=== PATIENT | female | born 1950 | race Caucasian/White ===

== ENCOUNTER 2018-07-21 02:15 | Outpatient (CLI) | payer MEDICARE, SELFPAY ==
--- NOTE | 2018-08-10 16:16 | W.CARDEVENT ---
Cardiac Event Recorder Cardiac Event Note: Monitor placed 13 days 22 hours, July 21-2017. Baseline of the sinus. Rare single PAC. 2 bursts SVT, longest 13.2 seconds, fastest 197 bpm. Rare single PVC. Rare couplets, rare triplet. No DVT. No bradycardia/block. No triggered events. No symptoms. Average heart rate sinus 79 bpm, range 45-152 bpm.
== END 2018-07-21 02:35 ==
PROVIDERS: PCP Family Medicine; Visit Provider Family Medicine
DX: R00.0 Tachycardia, unspecified (principal)
CPT/HCPCS: 93225

== ENCOUNTER 2018-08-10 12:00 | Outpatient (CLI) | payer MEDICARE, SELFPAY | END 2018-08-10 12:20 | PROVIDERS: PCP Family Medicine; Visit Provider Internal Medicine Interventional Cardiology | DX: I47.1 Supraventricular tachycardia (principal); I49.3 Ventricular premature depolarization | CPT/HCPCS: 93228 ==

== ENCOUNTER 2019-01-21 02:09 | Outpatient (CLI) | payer MEDICARE, SELFPAY ==
[2019-01-21 12:21] LABS: ALT 149 U/L (12-78); AST 111 U/L (15-37); Albumin 3.8 g/dL (3.4-5.0); Alkaline Phosphatase 114 U/L (46-116); Anion Gap 8.6 mmol/L (3-11); BUN 19 mg/dL (7-18); Bilirubin, Total 0.6 mg/dL (0.2-1.0); CO2 29.4 mmol/L (21.0-32.0); CREATININE 0.93 mg/dL (0.55-1.02); Calcium 9.8 mg/dL (8.5-10.1); Chloride 103 mmol/L (98-107); Cholesterol 169 mg/dL (50-200); Glucose 95 mg/dL (70-100); HDL Cholesterol 38 mg/dL (40-60); LDL CHOLESTEROL 108 mg/dL (<100); Magnesium 2.1 mg/dL (1.8-2.4); Sodium 141 mmol/L (136-145); TSH 1.92 uIU/mL (0.358-3.74); Total Protein 7.8 g/dL (6.4-8.2); Triglyceride 138 mg/dL (30-150)
== END 2019-01-21 02:29 ==
PROVIDERS: PCP Family Medicine; Visit Provider Family Medicine
DX: E03.9 Hypothyroidism, unspecified (principal); K21.9 Gastro-esophageal reflux disease without esophagitis; E78.5 Hyperlipidemia, unspecified
CPT/HCPCS: 36415; 80053; 80061; 83721; 83735; 84443

== ENCOUNTER 2019-03-02 02:37 | Outpatient (CLI) | payer MEDICARE, SELFPAY ==
[2019-03-02 12:09] LABS: ALT 141 U/L (12-78); AST 96 U/L (15-37); Albumin 3.6 g/dL (3.4-5.0); Alkaline Phosphatase 141 U/L (46-116); Bilirubin, Total 0.4 mg/dL (0.2-1.0); Total Protein 7.1 g/dL (6.4-8.2)
[2019-03-02 15:03] LABS: GGT 144 U/L (5-55)
== END 2019-03-02 02:57 ==
PROVIDERS: PCP Family Medicine; Visit Provider Family Medicine
DX: R74.0 Nonspecific elevation of levels of transaminase and lactic acid dehydrogenase [LDH] (principal)
CPT/HCPCS: 36415; 80076; 82977

== ENCOUNTER 2019-03-04 07:01 | Outpatient (CLI) | payer MEDICARE, SELFPAY ==
--- NOTE | 2019-03-04 09:10 | DI.US_ITS ---
SYMPTOM/DIAGNOSIS: ELEVATED LFT'S, R74.0 ABDOMEN ULTRASOUND: The aorta and vena cava are normal. The liver is somewhat echogenic suggesting fatty infiltration. The patient is status post cholecystectomy and the common duct caliber is 16 mm., presumably on a post surgical basis. The pancreas is normal. The spleen is normal. The left kidney measures 10.2 cm. in length and contains multiple cysts, the largest of which measures 4.8 by 4.1 by 5 cm. The right kidney is unremarkable. There is no evidence of free fluid. SUMMARY: Fatty liver is demonstrated. There are multiple left renal cysts. The study is otherwise unremarkable.
== END 2019-03-04 07:21 ==
PROVIDERS: PCP Family Medicine; Visit Provider Family Medicine
DX: K76.0 Fatty (change of) liver, not elsewhere classified (principal); N28.1 Cyst of kidney, acquired; R74.0 Nonspecific elevation of levels of transaminase and lactic acid dehydrogenase [LDH]
CPT/HCPCS: 76700

== ENCOUNTER 2019-03-22 01:17 | Outpatient (CLI) | payer MEDICARE, SELFPAY ==
[2019-03-22 13:21] LABS: Iron 105 ug/dL (50-175); Total Iron Binding Capacity 311 ug/dL (250-450); Transferrin Sat 34 % (15-50)
[2019-03-22 13:37] LABS: Ferritin 337 ng/mL (8-388)
[2019-03-23 10:50] LABS: Hepatitis B Surface Ag Negative (NEGAT)
[2019-03-23 11:06] LABS: Hepatitis C Ab w Rflx HCV PCR Negative (NEGAT)
[2019-03-23 11:31] LABS: HBs Antibody, Quant 4.8 mIU/mL; Hepatitis B Surface Ab Negative
[2019-03-24 11:07] LABS: Ceruloplasmin 32.3 mg/dL
[2019-03-24 11:56] LABS: IgA 190 mg/dL (85-499); Interpretation SEE COMMENTS; Tissue Transglutaminase IgA <1.2 U/mL (<4.0)
== END 2019-03-22 01:37 ==
PROVIDERS: PCP Family Medicine; Visit Provider Family Medicine
DX: R74.0 Nonspecific elevation of levels of transaminase and lactic acid dehydrogenase [LDH] (principal); Z11.59 Encounter for screening for other viral diseases
CPT/HCPCS: 36415; 82390; 82784; 83516; 86706; 86803; 87340; 82728; 83540; 83550; 86704

== ENCOUNTER 2019-09-22 09:40 | Outpatient (CLI) | payer MEDICARE, SELFPAY ==
[2019-09-22 10:07] LABS: HCT 39.3 % (36.0-46.0); HGB 12.9 g/dL (12.0-15.5); Mean Corp. HGB Concentration 32.8 g/dL (32.0-36.0); Mean Corpuscular Hemoglobin 28.5 pg (27.0-33.0); Mean Corpuscular Volume 86.8 fL (80-95); Mean Platelet Volume 9.2 fL (8.0-11.0); Platelet Count 334 x1000/uL (130-400); RBC 4.53 m/cumm (4.00-5.20); RBC Distribution Width 14.6 % (11.7-14.6); White Blood Cell Count 13.35 k/cumm (4.4-10.8)
--- NOTE | 2019-09-22 10:15 | DI.RAD_ITS ---
EXAM: XR CHEST 2V PA LATERAL INDICATION: Pneumonia, J18.9. COMPARISON: No exams were available for comparison TECHNIQUE: 2D digital imaging was performed. FINDINGS: The heart and pulmonary vasculature are within normal limits. There is an infiltrate seen in the lef t lung base. The right lung is clear. No pleural effusion or pneumothorax is identified. Degenerat marcin changes are seen in the spine. IMPRESSION: Left lower lobe infiltrate. This may represent atelectasis or pneumonia.
[2019-09-22 10:47] LABS: ALT 75 U/L (14-59); AST 56 U/L (15-37); Albumin 2.7 g/dL (3.4-5.0); Alkaline Phosphatase 136 U/L (46-116); Anion Gap 10.7 mmol/L (3-11); BUN 16 mg/dL (7-18); Bilirubin, Total 0.3 mg/dL (0.2-1.0); CO2 28.3 mmol/L (21.0-32.0); Calcium 8.6 mg/dL (8.5-10.1); Chloride 100 mmol/L (98-107); Glucose 156 mg/dL (70-100); Potassium 3.5 mmol/L (3.5-5.1); Sodium 139 mmol/L (136-145); Total Protein 7.2 g/dL (6.4-8.2)
[2019-09-22 11:44] LABS: Absolute Lymphocyte Count 1.34 k/cumm (1.2-3.4); Absolute Monocyte Count 0.53 k/cumm (0.11-0.7); Absolute Neutrophil Count 11.48 k/cumm (1.2-6.7); Atypical Lymphocytes % 1; Diff Comment Manual Differential; RBC Morphology Normal
== END 2019-09-22 10:00 ==
PROVIDERS: PCP Family Medicine; Visit Provider Family Medicine
DX: R91.8 Other nonspecific abnormal finding of lung field (principal); J18.9 Pneumonia, unspecified organism; J22 Unspecified acute lower respiratory infection; R94.5 Abnormal results of liver function studies
CPT/HCPCS: 36415; 80053; 71046; 85025

== ENCOUNTER 2019-10-27 01:20 | Outpatient (CLI) | payer MEDICARE, SELFPAY ==
[2019-10-27 09:45] LABS: Glucose 105 mg/dL (74-106)
== END 2019-10-27 01:40 ==
PROVIDERS: PCP Family Medicine; Visit Provider Family Medicine
DX: J18.9 Pneumonia, unspecified organism (principal); R73.09 Other abnormal glucose
CPT/HCPCS: 36415; 82947

== ENCOUNTER 2020-01-20 02:26 | Outpatient (CLI) | payer MEDICARE, SELFPAY ==
[2020-01-20 11:04] LABS: Calculated LDL 104 mg/dL (<100); Cholesterol 164 mg/dL (<200); HDL Cholesterol 32 mg/dL (40-60); TSH 2.91 uIU/mL (0.36-3.74); Triglyceride 144 mg/dL (<150)
== END 2020-01-20 02:46 ==
PROVIDERS: PCP Family Medicine; Visit Provider Family Medicine
DX: E78.5 Hyperlipidemia, unspecified (principal); E03.9 Hypothyroidism, unspecified
CPT/HCPCS: 36415; 80061; 84443

== ENCOUNTER → 2020-05-31 12:17 | Outpatient (BNVA) | payer MEDICARE, SELFPAY | PROVIDERS: PCP Family Medicine; Referring Provider Family Medicine; Visit Provider Nurse Practitioner Adult Health | DX: G56.03 Carpal tunnel syndrome, bilateral upper limbs (principal) | CPT/HCPCS: 95909; 99203 ==

== ENCOUNTER → 2020-07-13 10:09 | Outpatient (BNVA) | payer MEDICARE, SELFPAY | PROVIDERS: PCP Family Medicine; Referring Provider Nurse Practitioner Adult Health; Visit Provider Student in an Organized Health Care Education/Training Program | DX: G56.03 Carpal tunnel syndrome, bilateral upper limbs (principal) | CPT/HCPCS: 99203; 99214 ==

== ENCOUNTER 2020-10-27 11:21 | Emergency (ER) | payer MEDICARE, SELFPAY ==
[2020-10-27] VITALS (56 sets, daily range): BP systolic 127–173; BP diastolic 61–87; PULSE 88–113; RESP 12–33; TEMP 36.5; O2SAT 90–98
--- NOTE | 2020-10-27 11:15 | RT.EKG_ITS ---
APPROVED REPORT Exam: Resting ECG Patient Location: E HR:105 bpm ECG Measurements Heart Rate 105 AXIS [place] 164 P 37 QRSd 95 QRS -57 QT 361 T 49 QTc 477 Conclusion Sinus tachycardia. Consider left ventricular hypertrophy. Anterior Q waves
--- NOTE | 2020-10-27 11:30 | DI.RAD_ITS ---
EXAM: XR CHEST 2V PA LATERAL CLINICAL HISTORY: Chest pain TECHNIQUE: 2D digital imaging was performed. COMPARISON: CR XR CHEST 2V PA LATERAL from 09/22/2019 FINDINGS: MEDIASTINUM: Normal. HEART: Normal. PULMONARY VASCULATURE: Normal. LUNGS: Clear. PLEURAL SPACE: No pleural effusion or pneumothorax. BONE:Within normal limits for the patient's age. OTHER FINDINGS:Normal. IMPRESSION: No acute pulmonary findings. DATA REPOSITORY: RADIATION DOSE DELIVERED:
--- NOTE | 2020-10-27 11:38 | W.ED.GENAD ---
Discharge Plan Disposition Patient Disposition: HOME Condition: Stable Discharge Details Clinical Impression: Chest pain, Elevated liver enzymes, Elevated TSH Primary Care Provider: Terrie Murphy ED Provider: Reshma Morataya Home Meds and New Rx's Prescriptions: New aspirin 81 mg tablet,chewable 81 mg PO DAILY Qty: 30 RF: 0 Continued triamcinolone acetonide 0.1 % cream 1 applic TP DAILY PRN (Reason: dermatitis) Qty: 30 RF: 4 hydrocortisone 2.5 % lotion 1 applic TP BID PRN (Reason: itching) Qty: 118 RF: 1 calcium carbonate-vitamin D3 1 EACH tablet 1 ea PO DAILY RF: 0 atorvastatin 10 mg tablet 5 mg PO HS Qty: 90 RF: 4 omeprazole magnesium 20 mg capsule,delayed release(DR/EC) 20 mg PO DAILY Qty: 90 RF: 4 levothyroxine 88 mcg capsule 88 mcg PO DAILY Qty: 90 RF: 2 Discharge Instructions Instructions: Chest Pain (ED) Additional Instructions: Follow up with primary care provider in 3-5 days. Return to ED sooner if any worsening chest pain, nausea, dizziness or concerns. Increase oral fluids. Begin taking a chewable baby aspirin daily. Return to the ED for any worsening chest pain or concerns. A outpatient stress test was ordered today , they should call you with an appointment. Also of note your TSH level which has to do with your thyroid was elevated today at 4.68, also as discussed your liver enzymes were elevated. Please follow-up with your primary care regarding these tests. CT chest shows 3.5 mm right middle lobe lung nodule, probably benign. patients that are at high risk (history of smoking or of other known risk factors), consider optional CT Chest at 12 months. Small indeterminate left renal mass, probably involuting hemorrhagic cyst or some other benign entity. Routine outpatient ultrasound evaluation is recommended to confirm a presumed benign finding. Left adrenal mass, technically indeterminate but also probably benign. This should be further evaluated with dedicated renal CT protocol or opposed phased MRI imaging. please see your primary care provider next week to arrange further testing and evaluation. Referrals: Terrie Murphy MD [Primary Care Provider] - Discharge Data Discharge Date/Time-TO BE ENTERED AT DEPARTURE: 10/27/20 17:20 Medical Decision Making <Mel Tesfaye - Last Filed: 10/28/20 08:06> 70-year-old female presents to the ED with chief complaint of chest pain, she reports midsternal chest pain described as and small elephant sitting on my chest which began approximately 730 this morning. She notes mild nausea associated with this, some dizziness and diaphoresis. She states that belching somewhat relieves the pain. She has a past medical history of hypothyroidism, hyperlipidemia, GERD she is a former smoker. She did not take any aspirin prior to arrival. Upon initial exam she does state that pain is 3 or 4 out of 10. Denies any abdominal pain, diarrhea no swelling in her lower extremities. No recent travel. EKG was reviewed by Dr. Josephine THOMAS ER attending, please see his official report. Work-up ordered including CBC, CMP, magnesium, TSH, serial troponin, chest x-ray, 4 baby aspirin chewables, and nitroglycerin sublingual 0.4 mg x 3 as needed chest pain. EXAM: XR CHEST 2V PA LATERAL CLINICAL HISTORY: Chest pain TECHNIQUE: 2D digital imaging was performed. COMPARISON: CR XR CHEST 2V PA LATERAL from 09/22/2019 FINDINGS: MEDIASTINUM: Normal. HEART: Normal. PULMONARY VASCULATURE: Normal. LUNGS: Clear. PLEURAL SPACE: No pleural effusion or pneumothorax. BONE:Within normal limits for the patient's age. OTHER FINDINGS:Normal. IMPRESSION: No acute pulmonary findings. 1304: Patient reevaluation. Patient states that she did have some relief of her chest pressure with sublingual nitro x 1 administration, discussed her liver enzymes which are elevated with an AST of 173, ALT of 207, alk phos of 172 patient states that she has had elevated liver enzymes in the past which was attributed to fatty liver and her PCP is aware of it. She did take one Tylenol last night. She does not take Tylenol on a regular basis. She is not a drinker. She is aware of the plan of care to repeat the troponin around 2:30 PM. Shared decision making with patient regarding admission versus outpatient follow-up for a stress test and cardiology follow-up. Patient states that she would rather follow-up as an outpatient since this is Friday and she may not get the testing done until early next week. Pending repeat troponin result I do feel at this time is appropriate pending a negative work-up. 1524: While discharging patient RN states that patient would like to speak with me. Patient states that she is still feeling weak and diaphoretic. Given water and some crackers. Will order a CT chest abdomen pelvis to rule out any other pathology. She does have a history of a cholecystectomy. She states that she has been having some indigestion, nausea, belching and states she had a gallbladder attack last week. Care is to be handed off to oncoming provider Reshma Morataya NP pending CT chest abdomen pelvis resulted. Discharge papers were already written up given to the patient. Expected disposition of discharge pending normal CT. <Reshma Morataya NP - Last Filed: 10/27/20 18:34> ct results reviewed. patient able to take PO, heart rate improved to 100. abd exam unremarkable, she will be discharged with outpatient f/u with pcp. Medical Records Medical records reviewed: Yes I reviewed the patient's medical records. Medical records narrative: Patient Name: ANTONELLA CONCEPCION #: [id number]: ER Ordering Provider: : [facility] ER Primary Care Provider: Terrie Murphy M.D.Date of Exam: 10/27/20ex: F : 8Age: 70 Exam(s) PROCEDURE INFORMATION: Exam: CT Chest With Contrast; Diagnostic Exam date and time: 10/27/2020 3:55 PM Age: 70 years old Clinical indication: Other: Chest pain, nausea, HX of cholecystectomy; Prior surgery; Surgery date: 6+ months; Surgery type: Cholecystectomy. Complete hysterectomy TECHNIQUE: Imaging protocol: Diagnostic computed tomography of the chest with intravenous contrast. Contrast material: OMNIPAQUE 350; Contrast volume: 100 ml; Contrast route: INTRAVENOUS (IV); COMPARISON: CR XR CHEST 2V PA LATERAL 10/27/2020 12:06 PM FINDINGS: Limitations: None. Tracheobronchial tree: Normal. Lungs: Mild centrilobular pulmonary emphysema. 3.5 mm right middle lobe nodule best viewed image 47/7 and 274/6. The lungs are otherwise clear. Pleural space: Normal. Heart: Normal dimensions. No pericardial effusion. Coronary arteries: Mid LAD calcification. Aorta: Mild scattered aortosclerosis. Normal caliber aorta. Lymph nodes: No hilar or axillary adenopathy. Sub threshold mediastinal and hilar lymph nodes, none measuring greater than 0.7 cm short axis. Bones/joints: No acute fracture or suspicious osseous lesion. Soft tissues: Normal. IMPRESSION: 1. No acute disease in the chest. There is centrilobular pulmonary emphysema. 2. 3.5 mm right middle lobe lung nodule, probably benign. For patients at low risk (minimal or absent history of smoking and of other known risk factors), no routine follow-up is indicated. For patients at high risk (history of smoking or of other known risk factors), consider optional CT Chest at 12 months. (Reference: Beatrice) References: Beatrice Parker et al. Guidelines for Management of Incidental Pulmonary Nodules Detected on CT Images: From the Fleischner Society 2017. Radiology. 2017;284(1):228-243. 3. Aortosclerosis and mild left anterior descending coronary artery disease. PROCEDURE INFORMATION: Exam: CT Abdomen And Pelvis With Contrast Exam date and time: 10/27/2020 3:55 PM Age: 70 years old Clinical indication: Other: Chest pain, nausea, HX of cholecystectomy; Prior surgery; Surgery date: 6+ months; Surgery type: Cholecystectomy. Complete hysterectomy TECHNIQUE: Imaging protocol: Computed tomography of the abdomen and pelvis with intravenous contrast. Contrast material: OMNIPAQUE 350; Contrast volume: 100 ml; Contrast route: INTRAVENOUS (IV); COMPARISON: CR XR CHEST 2V PA LATERAL 10/27/2020 12:06 PM FINDINGS: Limitations: None. Liver: Finally lobulated/nodular liver margins and diffusely inhomogeneous liver parenchyma, also with fatty infiltration. Gallbladder and bile ducts: After cholecystectomy, there is a mild, expected degree of extrahepatic duct enlargement. Pancreas: Normal. Spleen: Normal. Adrenal glands: Left adrenal mass 2.3 x 1.8 cm. Attenuation values are indeterminate. No calcification or macroscopic fat. Kidneys and ureters: Simple/benign left renal cortical cyst 4.8 centimetres. Subcentimeter bilateral uniform low attenuating masses, also presumed benign. There is exophytic higher density posterior left renal cortical mass extending from a focal cortical defect. The mass measures 1.2 x 0.9 cm and there is slight infiltration of the adjacent perinephric fat. Stomach and bowel: Small hiatal hernia. The stomach is otherwise normal. Normal small bowel. Diffuse colonic diverticulosis. There is circumferential thickening of the bowel at the rectoanal junction. No adjacent fatty infiltration. Appendix: No evidence of appendicitis. Intraperitoneal space: No ascites, pneumoperitoneum or peritoneal lesion. Vasculature: Mild diffuse atherosclerosis. There is focal enlargement of the aorta, eccentric to posterior, and measuring up to 3.4 cm AP. Lymph nodes: None enlarged or otherwise suspicious. Urinary bladder: Normal. Reproductive: There has been prior hysterectomy. Ovaries are not identified. Bones/joints: No acute fracture or suspicious osseous lesion. Soft tissues: No mass or abdominal hernia. IMPRESSION: 1. No acute disease in the abdomen or pelvis. 2. There is stigmata of liver cirrhosis and diffuse fatty infiltration. No masses or findings suspicious for portal venous hypertension. 3. Left adrenal mass, technically indeterminate but also probably benign. This should be further evaluated with dedicated renal CT protocol or opposed phased MRI imaging. 4. Small indeterminate left renal mass, probably involuting hemorrhagic cyst or some other benign entity given the presence other renal findings that are presumed benign. Routine outpatient ultrasound evaluation is recommended to confirm a presumed benign finding. 5. Colonic diverticulosis and scattered atherosclerosis. Small hiatal hernia. Dictated and Authenticated by: Otoniel Salazar MD. Ordering:VIDAL Leal MD HPI <Mel Tesfaye - Last Filed: 10/28/20 08:06> General Mode of arrival: ambulatory. Date/Time Provider Initiated Documentation: 10/27/20 11:31. Limitations to Documentation: no limitations. Information obtained by: patient. HPI Narrative: 70-year-old female presents to the ED with chief complaint of chest pain, she reports midsternal chest pain described as and small elephant sitting on my chest which began approximately 730 this morning. She notes mild nausea associated with this, some dizziness and diaphoresis. She states that belching somewhat relieves the pain. She has a past medical history of hypothyroidism, hyperlipidemia, GERD she is a former smoker. She did not take any aspirin prior to arrival. Upon initial exam she does state that pain is 3 or 4 out of 10. Denies any abdominal pain, diarrhea no swelling in her lower extremities. No recent travel. Related Data Home Medications Medication Instructions Recorded Confirmed calcium carbonate-vitamin D3 1 ea PO DAILY 12/31/13 10/27/20 hydrocortisone 2.5 % lotion 1 applic TP BID PRN #118 ml 01/11/19 10/27/20 triamcinolone acetonide 0.1 % 1 applic TP DAILY PRN #30 gm 01/11/19 10/27/20 topical cream atorvastatin 10 mg tablet 5 mg PO HS #90 tab 10/20/19 10/27/20 omeprazole magnesium 20 mg 20 mg PO DAILY #90 cap 12/11/19 10/27/20 capsule,delayed release levothyroxine 88 mcg capsule 88 mcg PO DAILY #90 cap 08/04/20 10/27/20 aspirin 81 mg PO DAILY #30 tab 10/27/20 Previous Rx's Medication Instructions Recorded hydrocortisone 2.5 % lotion 1 applic TP BID PRN #118 ml 01/11/19 triamcinolone acetonide 0.1 % 1 applic TP DAILY PRN #30 gm 01/11/19 topical cream atorvastatin 10 mg tablet 5 mg PO HS #90 tab 10/20/19 omeprazole magnesium 20 mg 20 mg PO DAILY #90 cap 12/11/19 capsule,delayed release levothyroxine 88 mcg capsule 88 mcg PO DAILY #90 cap 08/04/20 aspirin 81 mg PO DAILY #30 tab 10/27/20 Allergies Allergy/AdvReac Type Severity Reaction Status Date / Time apple Allergy Severe SWELLING,RAW Verified 10/27/20 11:36 APPLES Sulfa (Sulfonamide Allergy Unknown Verified 10/27/20 11:36 Antibiotics) ciprofloxacin HCl AdvReac Intermediate DIARRHEA Verified 10/27/20 11:36 [From Cipro] erythromycin base AdvReac Intermediate NAUSEA Verified 10/27/20 11:36 General Stated Complaint: Chest Pain KAUR: 3 Review of Systems <Mel Tesfaye [facility] Filed: 10/28/20 08:06> Narrative: Constitutional: Negative for weight loss, alert and oriented, well groomed, normal body habitus, appears comfortable. HEENT: Denies trauma, headaches, blurry vision, nasal discharge, sore throat, trouble swallowing. Chest: Denies palpitations, irregular rhythm, positive chest pain, associated with dizziness, nausea and diaphoresis. Respiratory: Denies Shortness of breath, cough, hemoptysis. GI: Denies abdominal pain, vomiting, diarrhea, constipation. : Denies dysuria, hematuria, flank pain, rectal bleeding. Neuro: Denies blurry vision, weakness, syncope, headache or facial numbness. Hematologic: Denies easy bruising, intolerance to heat or cold, hair loss. PFSH <Melrobert Tesfaye - Last Filed: 10/28/20 08:06> Medical History (Updated 10/27/20 @ 14:56 by Mel Tesfaye) Bilateral carpal tunnel syndrome Colon polyps GERD (gastroesophageal reflux disease) Hyperlipidemia Hypothyroidism Osteoarthritis Surgical History Abdominal hysterectomy 1990; MARY/BSO Cholecystectomy (~05/2003) excision of Breast cyst-Right Incision & Drainage, Abscess or Hematoma left axilla Open Carpal Tunnel release 12/16-right; 01/13-left Family History Brother No problems noted. Mother , age 74 Breast cancer Father , age 80 No problems noted. Maternal Grandfather Stroke Paternal Grandfather No problems noted. Maternal Grandmother Heart disease Paternal Grandmother No problems noted. Son No problems noted. Social History Smoking/Tobacco Use Status: Former Tobacco Use Quit Date: 04/10/18 Tobacco: How many years used: 50 Second Hand Exposure: Yes Smoking risk assessment performed?: Yes Alcohol Intake: never Drug use: Never Caregiver/Support person: No Household members: spouse Housing: house Communication Needs: None Do you need help understanding health information?: Never Pets and animals: No Sexually active: Yes Do you think of yourself as: straight/heterosexual Current gender identity: female What is your relationship status?: How often do you talk on the phone with friends or family?: twice per week How often do you get together with friends or relatives?: once per week How often do you attend gnosticist or jew services?: 1-3 times per year Do you belong to any clubs or organized social groups?: yes Panel score (0-1 are the most socially isolated patients): 3 What type of physical activity do you participate in: decline to answer Duration: decline to answer Frequency: decline to answer Melinda/Congregational: Sikhism Seatbelt use: always Drive intox or ride w/intox flatbed truck driver: No Do you feel safe at home: Yes Do you feel safe in your relationship?: Yes Exam <Mel Tesfaye - Last Filed: 10/28/20 08:06> Narrative Exam Narrative: Constitutional: Alert and oriented x3. Appears stated age. Normal body habitus. Head: Normocephalic, no trauma. Eyes: Pupils PERRLA, Red reflex noted, EOM's intact. Eyelids symmetrical without lesions, discharge, or swelling. ENT: Bilateral TM's WNL, External ear normal to inspection, no mastoid TTP, swelling, or erythema, Nasal turbinates WNL, no nasal discharge. Normal dentition, Posterior pharynx WNL, no exudate. Chest: RRR, Normal S1, S2, distal pulses intact. Resp: Lungs clear to auscultation bilaterally, no wheezes, rales, or rhonchi. Musculoskeletal: Normal gait, 5/5 strength to all four extremities. Skin: No suspicious rashes or lesions. Capillary refill less than 2 sec. Neurologic: Cranial nerves II-XII intact. Alert and oriented x 3. DTR's intact. Hematologic/Lymphatic: No ecchymosis, no lymphadenopathy. Course <Mel Tesfaye - Last Filed: 10/28/20 08:06> Vital Signs Vital signs: Vital Signs Temperature 36.5 C 10/27/20 11:24 Pulse 113 H 10/27/20 11:24 Respiratory Rate 18 10/27/20 11:24 Blood Pressure 173/87 H 10/27/20 11:24 Pulse Oximetry 95 10/27/20 11:24 Temperature 36.5 C 10/27/20 11:24 Temperature Source Temporal Artery Scan 10/27/20 11:24 Pulse 113 H 10/27/20 11:24 Respiratory Rate 16 10/27/20 11:31 Respiratory Effort Non-Labored 10/27/20 11:31 Respiratory Depth Normal 10/27/20 11:31 Respiratory Pattern Normal 10/27/20 11:31 Blood Pressure 173/87 H 10/27/20 11:24 Blood Pressure Position Supine 10/27/20 11:24 Pulse Oximetry 95 10/27/20 11:24 Oxygen Delivery Method Room Air 10/27/20 11:24 Oxygen Flow Rate 0 10/27/20 11:24 Sign Out <Mel Tesfaye - Last Filed: 10/28/20 08:06> Sign Out Data: Sign Out Comment: Pending CT Chest Abd Pelvis Last updated by Mel Tesfaye at 10/27/20 16:13
[2020-10-27 11:43] LABS: Abs Immature Grans 0.04 10^3/uL (0.0-0.06); Absolute Basophil Count 0.05 10^3/uL (0.0-0.2); Absolute Eosinophil Count 0.08 10^3/uL (0.0-0.7); Absolute Lymphocyte Count 1.62 10^3/uL (1.2-3.4); Absolute Monocyte Count 0.54 10^3/uL (0.1-0.8); Absolute Neutrophil Count 4.83 10^3/uL (1.2-6.7); Basophils % 0.7; Eosinophils % 1.1; HCT 46.5 % (36.0-46.0); HGB 14.9 g/dL (11.2-15.7); Immature Grans % 0.6; Lymphocytes % 22.6; MCH 28.3 pg (27.0-33.0); MCV 88.4 fL (80-95); MPV 10.6 fL (8.0-11.0); Monocytes % 7.5; Neutrophils % 67.5; Nucleated RBC 0 %; Platelet Count 198 10^3/uL (130-400); RBC 5.26 10^6/uL (3.93-5.22); RDW 14.4 % (11.7-14.6); RDW-SD 46.5 fL; WBC 7.16 10^3/uL (4.4-10.8)
[2020-10-27] MEDS: Aspirin 81 MG CHEW 324 MG CH (12:01)
[2020-10-27 12:12] LABS: ALT 207 U/L (14-59); AST 173 U/L (15-37); Albumin 3.8 g/dL (3.4-5.0); Alkaline Phosphatase 172 U/L (46-116); BUN 16 mg/dL (7-18); Bilirubin, Total 0.6 mg/dL (0.2-1.0); CREATININE 0.87 mg/dL (0.55-1.02); Calcium 9.2 mg/dL (8.5-10.1); Chloride 103 mmol/L (98-107); Glucose 138 mg/dL (74-106); Sodium 139 mmol/L (136-145); TSH (W/Ref FT4) 4.68 uIU/mL (0.36-3.74); Total Protein 8.4 g/dL (6.4-8.2)
[2020-10-27 12:13] LABS: Troponin I < 0.05 ng/mL (<0.06)
[2020-10-27 12:29] LABS: FREE T4 0.96 ng/dL (0.76-1.46)
[2020-10-27] MEDS: nitroGLYcerin 0.4 MG TAB SL (12:50)
--- NOTE | 2020-10-27 14:30 | RT.EKG_ITS ---
APPROVED REPORT Exam: Resting ECG Patient Location: E HR:92 bpm ECG Measurements Heart Rate 92 AXIS [place] 170 P 20 QRSd 89 QRS -56 QT 377 T 39 QTc 465 Conclusion Sinus rhythm Anterior q, old
[2020-10-27 14:52] LABS: Troponin I < 0.05 ng/mL (<0.06)
--- NOTE | 2020-10-27 15:15 | DI.CT_ITS ---
EXAM: CT CHEST/ABD/PEL W CLINICAL HISTORY: Chest pain, Nausea, hx of cholecystectomy TECHNIQUE: Imaging Protocol: Axial computed tomography images with coronal and sagittal reformatted images were created and reviewed CONTRAST MATERIAL: Intravenous: Omnipaque 350 Contrast volume:100 mL Oral: No COMPARISON: No exams were available for comparison FINDINGS: CHEST: Tracheobronchial tree: Patent where visualized. Mediastinum and Rosie: No dominant adenopathy or fluid collection. Small hiatal hernia. Pulmonary parenchyma: No consolidation or dominant measurable mass. Or scarring in the lung bases. Centrilobular pulmonary emphysema. 3 mm noncalcified pulmonary nodule in the right middle lobe. Pleura: No effusion or pneumothorax. Heart: The heart is not dilated. Mild coronary artery calcification. No significant pericardial effu osbaldo. Aorta: Thoracic aorta non-dilated. Atherosclerosis. Lymph nodes: Within normal limits. Bones:Degenerative changes. Soft tissues: Unremarkable. ABDOMEN: Liver: There is diffuse fatty infiltration of the liver. The liver has a nodular border raising the question of hepatic cirrhosis. No measurable mass. Portal, Superior Mesenteric, and Splenic Veins: Unremarkable. Gallbladder and Biliary Tract: Status post cholecystectomy. The extrahepatic bile duct measures 1.6 cm. This is consistent with the abdominal ultrasound from 03/04/2019. This likely reflects a post ch olecystectomy state. Pancreas: Normal density, no abnormal calcifications or inflammatory process. Spleen: Normal. Adrenals: The right adrenal gland is unremarkable. There is a 2.2 cm solid isoechoic left adrenal no dule. Kidneys: Normal size, contour and axis. No radiodense stones or obstructive uropathy. There is a 4.7 cm left renal cyst. There is a 1.5 cm hyperdense exophytic left renal mass in the mid pole. Abdominal Aorta: Abdominal portion non-dilated. Moderate atherosclerosis. Bowel: No obstruction or bowel wall thickening. No evidence of appendicitis. Diverticulosis in the d escending and sigmoid colon but no evidence of acute diverticulitis. Peritoneal Cavity: No ascites, collection or mesenteric inflammatory response. Lymph Nodes: Within normal limits. Bones: Unremarkable. Soft Tissues: Small fat containing umbilical hernia. PELVIS: Bladder: Symmetric distention, no gross wall thickening. Reproductive Organs: Status post hysterectomy. Lymph Nodes: Within normal limits. Bones: Degenerative changes in the spine. IMPRESSION: 1. Findings suggestive of hepatic cirrhosis. Fatty infiltration of the liver. 2. Left adrenal mass. Further workup within the dedicated adrenal protocol CT or MRI is recommended. 3. Indeterminate left renal mass. Ultrasound may be considered for further evaluation. Alternativel y, MRI may be obtained. 4. No acute pulmonary process. 5. Centrilobular pulmonary emphysema. 6. 3 mm right middle lobe pulmonary nodule. For patients at high risk (example history of smoking or other known risk fractures), CT scan of the chest at 12 months should be considered. RADIATION DOSE DELIVERED: 1,406.05mGy.cm Total DLP DATA REPOSITORY: All CT scans at this facility are submitted to the National Radiology Data Registry (NRDR) Dose Index Registry (DIR) with the [employer] (ACR). RADIATION OPTIMIZATION: All CT scans at this facility use at least one of these dose optimization te chniques: automated exposure control; mA and/or kV adjustment per patient size (includes targeted exa ms where dose is matched to clinical indication); or iterative reconstruction.
[2020-10-27] MEDS: Omnipaque 350 MG/ML 100 ML BTL IJ (15:40)
[2020-10-27] MEDS: Normal Saline Flush 10 ML SYR IVP (15:48)
[2020-10-27] MEDS: Normal Saline - Diluent 50 ML VIAL IV (15:50)
[2020-10-27] MEDS: Normal Saline 1,000 ML 500 ML IV (16:00)
--- NOTE | 2020-10-27 16:47 | DI.VRAD_ITS ---
PROCEDURE INFORMATION: Exam: CT Chest With Contrast; Diagnostic Exam date and time: 10/27/2020 3:55 PM Age: 70 years old Clinical indication: Other: Chest pain, nausea, HX of cholecystectomy; Prior surgery; Surgery date: 6+ months; Surgery type: Cholecystectomy. Complete hysterectomy TECHNIQUE: Imaging protocol: Diagnostic computed tomography of the chest with intravenous contrast. Contrast material: OMNIPAQUE 350; Contrast volume: 100 ml; Contrast route: INTRAVENOUS (IV); COMPARISON: CR XR CHEST 2V PA LATERAL 10/27/2020 12:06 PM FINDINGS: Limitations: None. Tracheobronchial tree: Normal. Lungs: Mild centrilobular pulmonary emphysema. 3.5 mm right middle lobe nodule best viewed image 47/7 and 274/6. The lungs are otherwise clear. Pleural space: Normal. Heart: Normal dimensions. No pericardial effusion. Coronary arteries: Mid LAD calcification. Aorta: Mild scattered aortosclerosis. Normal caliber aorta. Lymph nodes: No hilar or axillary adenopathy. Sub threshold mediastinal and hilar lymph nodes, none measuring greater than 0.7 cm short axis. Bones/joints: No acute fracture or suspicious osseous lesion. Soft tissues: Normal. IMPRESSION: 1. No acute disease in the chest. There is centrilobular pulmonary emphysema. 2. 3.5 mm right middle lobe lung nodule, probably benign. For patients at low risk (minimal or absent history of smoking and of other known risk factors), no routine follow-up is indicated. For patients at high risk (history of smoking or of other known risk factors), consider optional CT Chest at 12 months. (Reference: Beatrice) References: Vanessahokelley H, et al. Guidelines for Management of Incidental Pulmonary Nodules Detected on CT Images: From the Fleischner Society 2017. Radiology. 2017;284(1):228-243. 3. Aortosclerosis and mild left anterior descending coronary artery disease. PROCEDURE INFORMATION: Exam: CT Abdomen And Pelvis With Contrast Exam date and time: 10/27/2020 3:55 PM Age: 70 years old Clinical indication: Other: Chest pain, nausea, HX of cholecystectomy; Prior surgery; Surgery date: 6+ months; Surgery type: Cholecystectomy. Complete hysterectomy TECHNIQUE: Imaging protocol: Computed tomography of the abdomen and pelvis with intravenous contrast. Contrast material: OMNIPAQUE 350; Contrast volume: 100 ml; Contrast route: INTRAVENOUS (IV); COMPARISON: CR XR CHEST 2V PA LATERAL 10/27/2020 12:06 PM FINDINGS: Limitations: None. Liver: Finally lobulated/nodular liver margins and diffusely inhomogeneous liver parenchyma, also with fatty infiltration. Gallbladder and bile ducts: After cholecystectomy, there is a mild, expected degree of extrahepatic duct enlargement. Pancreas: Normal. Spleen: Normal. Adrenal glands: Left adrenal mass 2.3 x 1.8 cm. Attenuation values are indeterminate. No calcification or macroscopic fat. Kidneys and ureters: Simple/benign left renal cortical cyst 4.8 centimetres. Subcentimeter bilateral uniform low attenuating masses, also presumed benign. There is exophytic higher density posterior left renal cortical mass extending from a focal cortical defect. The mass measures 1.2 x 0.9 cm and there is slight infiltration of the adjacent perinephric fat. Stomach and bowel: Small hiatal hernia. The stomach is otherwise normal. Normal small bowel. Diffuse colonic diverticulosis. There is circumferential thickening of the bowel at the rectoanal junction. No adjacent fatty infiltration. Appendix: No evidence of appendicitis. Intraperitoneal space: No ascites, pneumoperitoneum or peritoneal lesion. Vasculature: Mild diffuse atherosclerosis. There is focal enlargement of the aorta, eccentric to posterior, and measuring up to 3.4 cm AP. Lymph nodes: None enlarged or otherwise suspicious. Urinary bladder: Normal. Reproductive: There has been prior hysterectomy. Ovaries are not identified. Bones/joints: No acute fracture or suspicious osseous lesion. Soft tissues: No mass or abdominal hernia. IMPRESSION: 1. No acute disease in the abdomen or pelvis. 2. There is stigmata of liver cirrhosis and diffuse fatty infiltration. No masses or findings suspicious for portal venous hypertension. 3. Left adrenal mass, technically indeterminate but also probably benign. This should be further evaluated with dedicated renal CT protocol or opposed phased MRI imaging. 4. Small indeterminate left renal mass, probably involuting hemorrhagic cyst or some other benign entity given the presence other renal findings that are presumed benign. Routine outpatient ultrasound evaluation is recommended to confirm a presumed benign finding. 5. Colonic diverticulosis and scattered atherosclerosis. Small hiatal hernia. Dictated and Authenticated by: Otoniel Salazar MD. Ordering:VIDAL Leal MD
[2020-10-30 11:27] LABS: Hepatitis A Antibody IgM Negative (Negative); Hepatitis B Core Antibody Negative (Negative); Hepatitis B surface Ag Negative (Negative); Hepatitis C Ab w Rflx HCV PCR Negative (Negative)
== END 2020-10-27 17:20 | disposition home or self-care (01) ==
PROVIDERS: Registered Nurse Emergency; Emergency Provider Nurse Practitioner Acute Care; PCP Family Medicine
DX: R07.89 Other chest pain (principal); R74.01 Elevation of levels of liver transaminase levels; R94.6 Abnormal results of thyroid function studies
CPT/HCPCS: 36415; 74177; 80053; 86704; 86709; 86803; 87340; 93005; 96360; 99285; 71046; 71260; 83735; 84439; 84443; 84484; 85025; 93010; J3490

== ENCOUNTER 2020-11-13 03:31 | Outpatient (CLI) | payer MEDICARE, SELFPAY ==
[2020-11-14 19:38] LABS: COVID-19 RT-PCR UVMMC Result Negative (Negative)
== END 2020-11-13 03:51 ==
PROVIDERS: PCP Family Medicine; Visit Provider Internal Medicine Cardiovascular Disease
DX: Z11.59 Encounter for screening for other viral diseases (principal); Z01.811 Encounter for preprocedural respiratory examination
CPT/HCPCS: U0003

== ENCOUNTER 2020-11-16 00:32 | Outpatient (CLI) | payer MEDICARE, SELFPAY ==
--- NOTE | 2020-11-16 08:00 | ETT_ITS ---
APPROVED REPORT Exam: Exercise Treadmill Patient Location: Out-Patient Room/Bed: Stress Nurse: Chelsey Hummel RN Ordering Provider:MARILYN SORIANO, Contact Number: [phone] BMI: 35.42 Baseline Rhythm: Sinus Rhythm Rate Pressure Product: [id number] Indications: Patient reports 5/10 sternal, nonradiating chest pain/pressure during light housework wi th associated lightheadedness and nausea, lasting several hours. Medical History Medical History: HTN, HLD, GERD Cardiac Medications: Aspirin, Atorvastatin, Omeprazole. Allergies: Sulfonamide antibiotics, ciprofloxacin, erythromycin base Cardiac Risk Factors: HTN, Hyperlipidemia, Obesity, Smoking (former) Previous Cardiac Procedures: None. Pretest Chest Pain Characteristics: None. Exercise History: Sedentary Physical Disabilities: None. Lung Sounds: Clear to auscultation Heart Sounds: Regular Stress Test Details Test: Exercise stress testing was performed using a Jack protocol. Rest Stress HR Resting HR Supine: 94 bpm Max Heart Rate (APMHR): 148 bpm Resting HR Standin bpm Target HR (85% APMHR): 125 bpm Max HR Achieved: 169 bpm % of APMHR: 114 Recovery HR: 108 bpm HR response to stress: Accelerated HR response to stress Comment: Patient slow to recover HR. BP Resting BP Supine: 150/94 mmHg Resting BP Standin/68 mmHg Max BP: 182/70 mmHg Recovery BP: 152/64 mmHg BP response to stress: Normal blood pressure response to stress. ECG Resting ECG: Sinus Rhythm Ectopy: None. Stress ECG: Sinus Tachycardia ST Change: No significant ST segment changes noted. Arrhythmia: PACs, multifocal PVCs Comment: One PVC noted in stage 1, PVCs becoming more frequent as HR increased in stage 2. Recovery ECG: Sinus Tachycardia Recovery ST Change: No significant ST segment changes noted. Recovery Arrhythmia: None Comment: HR slow to recover. Clinical Reason for Termination: Muscle fatigue. Stress Symptoms: None. Exercise duration: 4 min48 sec Highest Stage Reached: Stage 2: 2.5 mph at 12% grade. Exercise capacity: 6.79 METs Angina Score: None Patino Treadmill Score: 4.6 Stress ECG Conclusion 1. The patient exercised for 5 minutes (7 METS). Exercise was stopped due to muscle fatigue. 2. There was no evidence of ischemia on the ECG portion of the exam. The patient did have multiple P VCs during peak exercise and immediate recovery. 3. The Patino Score (5) estimates an annual cardiovascular mortality of 1% and a five year survival of 94%. Using the Patino Score there is a low probability of any angiographic coronary disease. Patino Treadmill Score is 4.6 which is Moderate risk.
== END 2020-11-16 00:52 ==
PROVIDERS: PCP Family Medicine; Visit Provider Family Medicine
DX: R07.9 Chest pain, unspecified (principal); R11.0 Nausea; R42 Dizziness and giddiness; I10 Essential (primary) hypertension; E78.5 Hyperlipidemia, unspecified; E66.9 Obesity, unspecified; Z87.891 Personal history of nicotine dependence
CPT/HCPCS: 93016; 93018; 93017

== ENCOUNTER 2020-11-21 01:23 | Outpatient (CLI) | payer MEDICARE, SELFPAY ==
--- NOTE | 2020-11-21 06:49 | DI.MRI_ITS ---
EXAM: MR ABDOMEN WO/W CLINICAL HISTORY: 2.2 solid left adrenal mass/1.5cm renal mass on CT,R93.5 TECHNIQUE: Multiplanar multisequence MRA of the Abdomen was performed. CONTRAST MATERIAL: IV Contrast: 19 mL of Dotarem contrast administered. COMPARISON: US US ABDOMEN from 03/04/2019 US US ABDOMEN from 03/04/[address] CHEST/ABD/PEL W from 10/27/[address] CHEST/ABD/PEL W from 10/27/2020 FINDINGS: Liver: Unremarkable. Homogeneous. Pancreas: Unremarkable. Gallbladderand Bile Ducts: Dilated common duct, unchanged from previous exams. No evidence of stone. Adrenals: Left 1.7 centimeter circumscribed nodule. This shows signal dropout on opposed phase imagi ng, consistent with an adenoma. Right unremarkable. Kidneys: 4.8 centimeter cyst upper pole left kidney. Other tiny cysts bilaterally. The lesion in qu estion on the posterior aspect of the left kidney on CT is not well seen on the current MRI. It was visualized on previous ultrasound. Spleen: Unremarkable. Aorta: Unremarkable. Soft Tissues: Unremarkable. Bone: Degenerative disc changes and mild scoliosis in the lumbar region. Lymph Nodes: Unremarkable. IMPRESSION: 1. Small adrenal nodule is consistent with an adenoma. 2. Lesion seen on the posterior left kidney and is not well visualized on the current MRI. An ultra sound follow-up could be considered. DATA REPOSITORY:
[2020-11-21] MEDS: Gadoterate meglumine 20 ML VIAL 19 ML IVP (09:12)
== END 2020-11-21 01:43 ==
PROVIDERS: PCP Family Medicine; Visit Provider Family Medicine
DX: E27.8 Other specified disorders of adrenal gland (principal); N28.89 Other specified disorders of kidney and ureter
CPT/HCPCS: 74183

== ENCOUNTER 2021-01-17 14:23 | Outpatient (CLI) | payer MEDICARE, SELFPAY ==
[2021-01-17 15:56] LABS: ALT 153 U/L (14-59); AST 119 U/L (15-37); Albumin 3.3 g/dL (3.4-5.0); Alkaline Phosphatase 176 U/L (46-116); Anion Gap 8.6 mmol/L (3-11); BUN 17 mg/dL (7-18); Bilirubin, Total 0.4 mg/dL (0.2-1.0); CO2 28.4 mmol/L (21.0-32.0); CREATININE 0.8 mg/dL (0.55-1.02); Calcium 9.2 mg/dL (8.5-10.1); Chloride 100 mmol/L (98-107); Glucose 258 mg/dL (74-106); Potassium 4.1 mmol/L (3.5-5.1); Sodium 137 mmol/L (136-145); TSH 1.11 uIU/mL (0.36-3.74); Total Protein 7.3 g/dL (6.4-8.2)
[2021-01-22 15:16] LABS: Amylase 25 U/L (25-115); Lipase 126 U/L (73-393)
== END 2021-01-17 14:24 | disposition home or self-care (01) ==
LOC: LBO 14:23
PROVIDERS: PCP Family Medicine; Visit Provider Family Medicine
DX: E03.9 Hypothyroidism, unspecified (principal); R74.01 Elevation of levels of liver transaminase levels
CPT/HCPCS: 36415; 80053; 83690; 82150; 84443

== ENCOUNTER 2021-01-31 02:35 | Outpatient (CLI) | payer MEDICARE, SELFPAY ==
--- NOTE | 2021-01-31 08:15 | DI.US_ITS ---
EXAM: US RENAL CLINICAL HISTORY: left renal mass on CT 10/27/21,LESION,N28.9 TECHNIQUE: Ultrasound of both kidneys performed using standard protocol. COMPARISON: US US ABDOMEN from 03/04/[address] CHEST/ABD/PEL W from 10/27/2020 MR MR ABDOMEN WO/W from 11/21/2020 MR MR ABDOMEN WO/W from 11/21/2020 FINDINGS: RIGHT KIDNEY: Measures 11.1 cm in length. No cysts evident. Normal cortical thickness and corticomedullary differen tiation .No solid masses No intrarenal calculi nor hydronephrosis. LEFT KIDNEY: Measures 11.5 cm in length. There is a 5 cm diameter benign cyst in the medial upper pole again note d. The previously described smaller exophytic mass off the midpole of the left kidney seen on prior CT scan October 2020 is not seen on today's ultrasound examination images.. No intrarenal calculi n or hydonephrosis. URINARY BLADDER: Prevoid volume is 345 cc Postvoid volume is 6 cc No evidence of bladder mass nor diverticuli. Ureterovesical jets: Not identified IMPRESSION: 1. No significant ultrasound findings in the right kidney. 2. Benign 5 cm cyst in the left kidney again noted. 3. The previously described smaller exophytic lesion off the lateral aspect of the left kidney seen on the CT scan of October 2020 is not seen on today's ultrasound images. It was also less evident o n recent MRI scan 11/21/2020. It is therefore most probably a benign finding. 4. Please note that the recent CT scan and MRI scan revealed a left adrenal nodule measuring 2.2 cm. On MRI that nodule exhibit signal dropout on out of phase-opposed phase imaging consistent with a p robable benign adenoma. Given the above I recommend repeat imaging in 1 year with MRI examination, earlier if clinically telma cated. DATA REPOSITORY:
== END 2021-01-31 02:55 ==
PROVIDERS: PCP Family Medicine; Visit Provider Family Medicine
DX: N28.89 Other specified disorders of kidney and ureter (principal); N28.1 Cyst of kidney, acquired; D35.02 Benign neoplasm of left adrenal gland
CPT/HCPCS: 76770

== ENCOUNTER 2021-03-09 02:43 | Outpatient (CLI) | payer MEDICARE, SELFPAY ==
[2021-03-09 08:49] LABS: Hemoglobin A1C 6.9 % (<5.7)
[2021-03-09 09:01] LABS: Calculated LDL 97 mg/dL (<100); Cholesterol 156 mg/dL (<200); Glucose 123 mg/dL (74-106); HDL Cholesterol 35 mg/dL (40-60); Triglyceride 124 mg/dL (<150)
== END 2021-03-09 02:44 | disposition home or self-care (01) ==
LOC: LBO 02:43
PROVIDERS: PCP Family Medicine; Visit Provider Family Medicine
DX: E78.5 Hyperlipidemia, unspecified (principal); R73.9 Hyperglycemia, unspecified
CPT/HCPCS: 36415; 80061; 82947; 83036

== ENCOUNTER 2021-06-14 03:43 | Outpatient (CLI) | payer MEDICARE, SELFPAY ==
[2021-06-14 12:01] LABS: Anion Gap 7.6 mmol/L (3-11); BUN 19 mg/dL (7-18); CO2 27.4 mmol/L (21.0-32.0); CREATININE 0.8 mg/dL (0.55-1.02); Calcium 9.4 mg/dL (8.5-10.1); Chloride 105 mmol/L (98-107); Glucose 107 mg/dL (74-106); Potassium 4.5 mmol/L (3.5-5.1); Sodium 140 mmol/L (136-145)
[2021-06-14 12:18] LABS: Hemoglobin A1C 6.7 % (<5.7)
== END 2021-06-14 03:44 | disposition home or self-care (01) ==
LOC: LOS 03:43
PROVIDERS: PCP Family Medicine; Visit Provider Family Medicine
DX: E11.65 Type 2 diabetes mellitus with hyperglycemia (principal)
CPT/HCPCS: 36415; 80048; 83036

== ENCOUNTER 2021-06-29 11:37 | Outpatient (CLI) | payer MEDICARE, SELFPAY ==
--- NOTE | 2021-06-29 11:30 | DI.RAD_ITS ---
Exam(s) XR KNEE RT 4V AP,LAT,MERLINE,PAT EXAM: XR KNEE RT 4V AP,LAT,MERLINE,PAT CLINICAL HISTORY: rt knee pain. TECHNIQUE: 2D digital imaging was performed. COMPARISON: No previous for comparison. FINDINGS: BONES: No acute fracture is present. No bony destructive lesion is seen. JOINTS: The knee is normally aligned. No joint effusion is seen. There is a small spur at the posteri or aspect of the patella. There is a small enthesophyte at the superior patella. SOFT TISSUE: Normal. IMPRESSION: Mild degenerative changes of the right knee. DATA REPOSITORY: RADIATION DOSE DELIVERED:
== END 2021-06-29 11:38 | disposition home or self-care (01) ==
PROVIDERS: PCP Family Medicine; Referring Provider Family Medicine; Visit Provider Student in an Organized Health Care Education/Training Program
DX: M25.561 Pain in right knee; S83.104A Unspecified dislocation of right knee, initial encounter; W10.9XXA Fall (on) (from) unspecified stairs and steps, initial encounter
CPT/HCPCS: 99214; 73564

== ENCOUNTER 2021-07-25 01:49 | Outpatient (CLI) | payer MEDICARE, SELFPAY ==
--- NOTE | 2021-07-25 07:00 | DI.MRI_ITS ---
Exam(s) MR LOWER JOINT RT WO EXAM: MR LOWER JOINT RT WO CLINICAL HISTORY: right knee pain r/o meniscus tear, M25.561. TECHNIQUE: Multiplanar multisequence MRI was performed. COMPARISON: CR XR KNEE RT 4V AP,LAT,MERLINE,PAT from 06/29/2021 CR XR KNEE RT 4V AP,LAT,MERLINE,PAT from 06/29/2021 FINDINGS: The examination is limited due to patient motion artifact. BONES: There is no fracture or contusion pattern. JOINTS: Articular cartilage is unremarkable. Small amount of fluid in the joint space. Mild degenera tive signal changes are seen in the medial femoral tibial joint space. TENDONS: Extensor mechanism: Unremarkable. Medial retinaculum: Unremarkable. Lateral retinaculum: Unremarkable. Popliteus: Unremarkable. MUSCLES: Unremarkable. MENISCI: There is abnormal signal and size of the body of the medial meniscus is consistent with a te ar. The lateral meniscus is unremarkable. SOFT TISSUES: There is mild edema in the soft tissues around the knee. No focal fluid collection is seen. No soft tissue mass is appreciated. LIGAMENTS: Anterior Cruciate: Unremarkable. Posterior Cruciate: Unremarkable. Medial Collateral:MCL sprain. Lateral Collateral: Unremarkable. OTHER: IMPRESSION: 1. Tear of the body of the medial meniscus. 2. MCL sprain. 3. Mild degenerative changes in the medial femoral tibial joint. DATA REPOSITORY:
== END 2021-07-25 02:09 ==
PROVIDERS: PCP Family Medicine; Visit Provider Student in an Organized Health Care Education/Training Program
DX: M25.561 Pain in right knee (principal); S83.241A Other tear of medial meniscus, current injury, right knee, initial encounter; S83.411A Sprain of medial collateral ligament of right knee, initial encounter; M17.11 Unilateral primary osteoarthritis, right knee
CPT/HCPCS: 73721

== ENCOUNTER → 2021-07-27 09:03 | Outpatient (BNVA) | payer MEDICARE, SELFPAY | PROVIDERS: PCP Family Medicine; Referring Provider Family Medicine; Visit Provider Student in an Organized Health Care Education/Training Program | DX: S83.104D Unspecified dislocation of right knee, subsequent encounter (principal); S83.241D Other tear of medial meniscus, current injury, right knee, subsequent encounter; X58.XXXD Exposure to other specified factors, subsequent encounter | CPT/HCPCS: 99213 ==

== ENCOUNTER → 2021-08-15 12:36 | Outpatient (BNVA) | payer MEDICARE, SELFPAY | PROVIDERS: PCP Family Medicine; Referring Provider Family Medicine | DX: Z01.818 Encounter for other preprocedural examination (principal); S83.241D Other tear of medial meniscus, current injury, right knee, subsequent encounter; S83.104D Unspecified dislocation of right knee, subsequent encounter; X58.XXXD Exposure to other specified factors, subsequent encounter ==

== ENCOUNTER 2021-09-03 02:19 | Outpatient (CLI) | payer MEDICARE, SELFPAY ==
[2021-09-03 12:27] LABS: Source Nasal/Nares
[2021-09-03 21:45] LABS: COVID-19 PCR Negative (Negative)
== END 2021-09-03 02:20 | disposition home or self-care (01) ==
LOC: LBO 02:20
PROVIDERS: PCP Family Medicine; Visit Provider Student in an Organized Health Care Education/Training Program
DX: Z20.822 Contact with and (suspected) exposure to COVID-19 (principal); Z01.818 Encounter for other preprocedural examination
CPT/HCPCS: 87635

== ENCOUNTER 2021-09-04 12:12 | Day surgery (SDC) | payer MEDICARE, SELFPAY ==
[2021-09-04] VITALS (10 sets, daily range): BP systolic 117–147; BP diastolic 45–87; PULSE 75–89; RESP 14–21; TEMP 36–37; TEMPC 36.3; O2SAT 95–98; BMI 33.7
--- NOTE | 2021-09-04 13:24 | ANES.PREOP_ITS ---
General Info Date of Service Date Performed: 09/04/21 Height: 5 ft 3 in Weight: 86.3 kg Body Mass Index (BMI): 33.7 Surgical Procedure: Operation Date: 09/04/21 12:55 Proposed Procedures Side Surgeon p knee arthroscopic partial medial menisectomy Right Addy Rueda MD Meds Allergies and Home Medications Allergies Allergy/AdvReac Type Severity Reaction Status Date / Time apple Allergy Severe SWELLING,RAW Verified 09/04/21 12:48 APPLES Sulfa (Sulfonamide Allergy Unknown Verified 09/04/21 12:48 Antibiotics) ciprofloxacin HCl AdvReac Intermediate DIARRHEA Verified 09/04/21 12:48 [From Cipro] erythromycin base AdvReac Intermediate NAUSEA Verified 09/04/21 12:48 Home Medication Medication Instructions Recorded calcium carbonate-vitamin D3 1 ea PO DAILY 12/31/13 hydrocortisone 2.5 % lotion 1 applic TP BID PRN #118 ml 01/11/19 triamcinolone acetonide 0.1 % 1 applic TP DAILY PRN #30 gm 01/11/19 topical cream nitroglycerin 0.4 mg sublingual 0.4 mg SUBLINGUAL Q5-10M PRN #20 10/30/20 tablet tab atorvastatin 10 mg tablet 5 mg PO HS #90 tab 11/20/20 omeprazole magnesium 20 mg 20 mg PO DAILY #90 cap 11/28/20 capsule,delayed release levothyroxine 100 mcg tablet 100 mcg PO DAILY #90 tab 08/20/21 metformin 500 mg tablet,extended 500 mg PO DAILY #90 tab 08/20/21 release 24 hr amlodipine 5 mg PO HS 09/03/21 Current Visit Medications: Current Medications Generic Name Dose Route Start Last Admin Trade Name Freq PRN Reason Stop Dose Admin Ringer's Solution 1,000 mls @ 80 mls/hr 09/04/21 06:00 IV 10/03/21 23:59 INFUSION GEOFF Cefazolin Sodium/Dextrose 2 gm in 50 mls @ 100 mls/hr 09/04/21 06:00 Ancef Duplex IVPB 10/03/21 23:59 PREOP GEOFF IV Miscellaneous Supplies 1 each 09/04/21 06:00 Iv Access IV 10/03/21 23:59 DIRECTED GEOFF Sodium Chloride 0 ml 09/04/21 06:00 Normal Saline Flush 10 Ml Syr IV 10/03/21 23:59 PRN PRN Sodium Chloride 0 ml 09/04/21 06:00 Normal Saline 10 Ml Vial IJ 10/03/21 23:59 DIRECTED PRN Sterile Water 0 ml 09/04/21 06:00 Water,Injection,Sterile 10 Ml Vial IJ 10/03/21 23:59 DIRECTED PRN PFSH Active Problems Active Problems: Problem Status Onset Code Gastroesophageal reflux disease 12/31/13 K21.9 Generalized osteoarthritis 12/31/13 M15.9 Hyperlipidemia E78.5 Hypothyroidism 01/04/14 E03.9 Tobacco use disorder F17.200 Obesity E66.9 Pulmonary nodule R91.1 High blood sugar R73.9 Acute traumatic internal derangement of right knee S83.104A Acute medial meniscus tear of right knee S83.241A Left breast mass N63.20 Essential hypertension I10 Cirrhosis of liver without ascites K74.60 Polyp of colon 10/09/05 K63.5 Fatty liver disease, nonalcoholic K76.0 Bilateral carpal tunnel syndrome G56.03 Medical History Medical History Adrenal mass 1 cm to 4 cm in diameter benign/adenoma/ MRI 2020 Bilateral carpal tunnel syndrome Cirrhosis of liver without ascites [facility] fibroscan March 2021/asymptomatic/NON-ERIC Essential hypertension Fatty liver disease, nonalcoholic BRIAN/cirrhosis dx fibroscan [facility] March 2021 GERD (gastroesophageal reflux disease) Hx of needle biopsy (L) BREAST Hyperlipidemia Hypothyroidism Left breast mass Osteoarthritis Polyp of colon (10/09/05) [id number] adenoma 2014 CT colonography at [facility] [place], no polyp ([facility] unable to complete colonoscopy) Sebaceous cyst of left axilla infected and removed 2015 Surgical History Surgical History Abdominal hysterectomy 1990; MARY/BSO Cholecystectomy (~05/2003) excision of Breast cyst-Right Incision & Drainage, Abscess or Hematoma left axilla Open Carpal Tunnel release 12/16-right; 01/13-left Tobacco Smoking/Tobacco Use Status: Former Tobacco Use Tobacco: How many years used: 50 Passive smoking exposure: Yes Second hand exposure: Yes Alcohol Alcohol Intake: never Substance Use Substance use: Never Substance use type: does not use Vital Signs and Lab Results Vital Signs Most Recent Vital Signs in EMR: Most Recent Vital Signs Temp Pulse Resp BP Pulse Ox 37 C 89 16 144/87 H 97 09/04/21 12:57 09/04/21 12:57 09/04/21 12:57 09/04/21 12:57 09/04/21 12:57 Lab Results Blood Type / Crossmatch: No Data to Display Complete Blood Count: No Data to Display Complete Metabolic Panel: No Data to Display Liver Function Panel: No Data to Display Coagulation Panel: No Data to Display Cardiac Panel: No Data to Display Arterial Blood Gas: No Data to Display Venous Blood Gas: No Data to Display Pancreas Panel: No Data to Display Thyroid Panel: No Data to Display Infectious Disease: Coronavirus (COVID-19)(PCR) Negative (Negative) 09/03/21 10:41 09/03/21 Coronavirus 2019 Source Nasal/Nares 09/03/21 10:41 09/03/21 Blood Cultures: No Data to Display Toxicology Panel: No Data to Display Imaging and Studies Imaging and Studies EKG Summary: DATE/TIME OF SERVICE: 10/27/20 1434 HR:92 bpm ECG Measurements Heart Rate 92 AXIS OK 170 P 20 QRSd 89 QRS -56 QT 377 T39 QTc 465 Conclusion Sinus rhythm Stress Test Summary: DATE/TIME OF SERVICE: 11/16/20 Exam: Exercise Treadmill Indications: Patient reports 5/10 sternal, nonradiating chest pain/pressure during light housework with associated lightheadedness and nausea, lasting several hours. Stress ECG Conclusion 1. The patient exercised for 5 minutes (7 METS). Exercise was stopped due to muscle fatigue. 2. There was no evidence of ischemia on the ECG portion of the exam. The patient did have multiple PVCs during peak exercise and immediate recovery. 3. The Patino Score (5) estimates an annual cardiovascular mortality of 1% and a five year survival of 94%. Using the Patino Score there is a low probability of any angiographic coronary disease. Patino Treadmill Score is 4.6 which is Moderate risk. Anesthesia Assessment and Plan Anesthesia History Personal History: PONV and Delayed Emergence Family History: No Family History of Anesthesia Complications Exercise Tolerance Exercise Tolerance: Metabolic Equivalents>4 Pertinent Negatives Pertinent Negatives: No Symptoms of GERD (Well controlled with medication), No Major Cardiovascular Symptoms or Complaints and No Major Pulmonary Symptoms or Complaints Cardiac & Pulmonary Exam Cardiac Exam: Normal S1/S2 Heart Sounds Pulmonary Exam: Clear Bilateral Breath Sounds Airway Exam Known Difficult Airway: No Mallampati Class: 1 Mouth Opening: Normal (> 3cm) Thyromental Distance: Greater than 3 cm Neck Range of Motion: Full ROM Neck Circumference: Normal Teeth Condition: Normal Dentition ASA Classification ASA Score: ASA 2 Emergency Case?: No NPO Status NPO Status: NPO Clears >2 hours, Solids >8 hours Anesthesia Plan Resuscitation Status: Full Code Anesthesia Technique: General Anesthesia Airway Planned: LMA Monitors Used: Standard Monitors
[2021-09-04] MEDS: Lactated Ringers 1,000 ML 80 ML IV (13:28)
[2021-09-04] MEDS: ceFAZolin 2 GM/50 ML BAG IVPB (13:51)
--- NOTE | 2021-09-04 13:59 | W.PM.DSUDISC ---
Discharge Plan Disposition Patient Disposition: HOME Condition: Good Discharge Details Reason For Visit: R knee arthroscopy Attending Provider: Addy Rueda Primary Care Provider: Trish Healy Home Meds and New Rx's Prescriptions: New acetaminophen 500 mg capsule 1,000 mg PO Q8H PRN PRNQty: 90 RF: 0 hydrocodone-acetaminophen 5-325 mg tablet 1 tab PO Q6H PRN (Reason: pain) Qty: 6 RF: 0 ibuprofen 600 mg tablet 600 mg PO TID PRN (Reason: pain) Qty: 90 RF: 0 Continued triamcinolone acetonide 0.1 % cream 1 applic TP DAILY PRN (Reason: dermatitis) Qty: 30 RF: 4 hydrocortisone 2.5 % lotion 1 applic TP BID PRN (Reason: itching) Qty: 118 RF: 1 nitroglycerin [Nitrostat] 0.4 mg tablet, sublingual 0.4 mg sublingual Q5-10M PRN (Reason: chest pain) Qty: 20 RF: 0 levothyroxine 100 mcg tablet 100 mcg PO DAILY Qty: 90 RF: 4 metformin 500 mg tablet extended release 24 hr 500 mg PO DAILY Qty: 90 RF: 4 calcium carbonate-vitamin D3 1 EACH tablet 1 ea PO DAILY RF: 0 atorvastatin 10 mg tablet 5 mg PO HS Qty: 90 RF: 2 omeprazole magnesium 20 mg capsule,delayed release(DR/EC) 20 mg PO DAILY Qty: 90 RF: 4 amlodipine 5 mg tablet 5 mg PO HS RF: 0 Discharge Instructions Stand Alone Forms: Mohit Knee Arthroscopy Equipment/Supplies: Partial Weight Bearing Crutches Activity:: Activity as Tolerated Remove Dressings/Wound Care:: 72 hours Shower/Bathe:: 72 hours Diet:: As Tolerated Discharge Orders Discharge Orders: Discharge Order (Routine); Ordered 09/04/21 Ordered By: Jamarcus Puga DS: Diagnosis Discharge Diagnosis (1) Acute medial meniscus tear of right knee: Status: Acute
[2021-09-04] MEDS: Bupivacaine 0.5% Pres-Free 30 ML VIAL (14:09)
--- NOTE | 2021-09-04 14:50 | W.ANESPOSTOP ---
Postoperative Evaluation Date, Time and Location Date Performed: 09/04/21 Time Performed: 14:50 Patient Location: PACU Vital Signs Most Recent Imported Vital Signs: Most Recent Vital Signs Temp Pulse Resp BP Pulse Ox 36.3 C L 87 21 130/45 L 97 09/04/21 14:26 09/04/21 14:26 09/04/21 14:09/04/21 14:09/04/21 14:26 Most Recent Manually Entered Vital Signs: Adult Blood Pressure: 124/61 Heart Rate: 78 Respirations: 14 Oxygen Saturation (%): 98 Temperature (C): 36.3 C Pain Score (0-10 Scale): 2 Pain Score Most Recent Pain Score: Most Recent Pain Score Pain Level 0 09/04/21 14:26 Assessment Mental Status: Awake (Alert & Oriented to Patient Baseline) Airway and Respiratory Function: Patent airway with normal (patient baseline) respiratory exam Cardiovascular Function: Hemodynamically Stable Hydration Status: Adequately Hydrated Nausea & Vomiting: No Nausea or Vomiting Pain: Pt. Denies Any Pain Peripheral Nerve Block: Patient did not receive a nerve block
[2021-09-04] MEDS: HYDROcodone 5/Acetaminophen 325 TAB PO (15:40)
--- NOTE | 2021-09-04 21:02 | ROE_ITS ---
Date of service: 09/04/21 Time of Service: 14:03 Operative Note Operative Note DATE OF PROCEDURE: 09/04/21 PRE-OP DIAGNOSIS: Right Knee Medial Meniscus Tear POST-OP DIAGNOSIS: same PROCEDURE: Arthroscopic partial medial menisectomy - right knee SURGEON: Addy Rueda ANESTHESIA TYPE: General LMA/ETT Refer to Anesthesia Record ESTIMATED BLOOD LOSS: 0 PATHOLOGY: none sent TOURNIQUET TIME: 0 COMPLICATIONS: None Patient was transported to: PACU Patient's condition: stable Indications: I have seen Sheron in clinic for symptoms of a meniscus tear. This was confirmed based on MRI and exam findings. Nonoperative measures were exhausted but disability and pain persisted. I discussed knee arthroscopy with meniscal intervention with the patient. I reviewed the risks of the procedure to include, but not limited to, bleeding, infection, pain, stiffness, damage to nerves or vessels, recurrence, blood clot. Despite these risks, the patient elected to proceed. 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 The consent was reviewed with the patient and signed. The history and physical was updated. All questions were answered. She was taken back to the operating room. The patient was placed into the supine position on the operating room table. A nonsterile tourniquet was placed high onto the leg but not used. All bony prominences were well padded. Prophylactic antibiotics in the form of Cefazolin were administered. The right leg was then prepped with Chloraprep and draped in a standard fashion with stockinette and extremity drape. A timeout to confirm correct identity, side an d site, procedure, allergies, anesthesia, and medical concerns was performed. The leg was placed into a pneumatic leg kelly, SPIDER2. A standard lateral portal was made at the lateral border of the patella tendon in line with the inferior pole of the patella, soft spot. The skin and deep tissue was incised sharply and the blunt trochar was inserted atraumatically. A diagnostic arthroscopy was performed and the findings are listed above. The suprapatellar pouch had no significant inflammatory change. The patellofemoral articulation showed no articular damage as well as good tracking. The lateral gutter had no loose bodies and the medial gutter had no loose bodies. The knee was brought into some valgus stress in extension to open the medial compartment. A medial portal was made, localized by a spinal needle. The portal was created with an #11 blade through skin and capsule under direct visualization avoiding any meniscal injury. A probe was then inserted into the medial compartment. The medial compartment was fully inspected. The chondral surface of the tibia showed no significant chondromalacia and the surface of the femur showed some focal Grade II chondromalacia. The medial meniscus had a complex tear near the posteirior corner. This had a parrot beak type tear associated with some complex tearing and primary horizontal component with undersurface fraying to th e level of the root. The root was intact. After evaluation, the meniscus was debrided down to a stable base using a series of biters and arthroscopic shola. It was probed afterwards to confirm that the tear had been removed and the meniscus was stable. The notch was then inspected which showed an intact ACL and an intact PCL. The leg was then brought into a figure of 4 position. The lateral compartment was fully inspected with the arthroscope and a probe. The chondral surface of the lateral femur showed no significant chondromalacia. The chondral surface of the lateral tibia showed no significant chondromalacia. The lateral meniscus had no meniscal tear. The arthroscope was brought back into the suprapatellar pouch and the leg was in full extension. The knee was thoroughly irrigated with the arthroscopic fluid on high flow and pressure. Inflow was stopped and excess fluid was removed. The wounds were closed with 4-0 Nylon. They were dressed with Xeroform, 4x4 gauze, ABD pad, Kerlix and an BILLY wrap. A cryo-cuff was applied. The patient tolerated the procedure well and was returned to the Same Day Surgery area in a stable condition suffering no known complication.
== END 2021-09-04 17:05 | disposition home or self-care (01) ==
PROVIDERS: PCP Family Medicine; Visit Provider Student in an Organized Health Care Education/Training Program
PROC: (CPT 29870; principal; 2021-09-04 12:45)
DX: S83.241A Other tear of medial meniscus, current injury, right knee, initial encounter (principal); X58.XXXA Exposure to other specified factors, initial encounter; K75.81 Nonalcoholic steatohepatitis (NASH); I10 Essential (primary) hypertension; E03.9 Hypothyroidism, unspecified; E78.5 Hyperlipidemia, unspecified
CPT/HCPCS: 29881; J0131; J0690; J1100; J1200; J2001; J2405

== ENCOUNTER 2021-09-10 01:45 | Outpatient (CLI) | payer MEDICARE, SELFPAY ==
--- NOTE | 2021-09-10 07:30 | DI.US_ITS ---
Exam(s) US ABDOMEN LIMITED EXAM: US ABDOMEN LIMITED CLINICAL HISTORY: NEW CIRRHOSIS OF LIVER, K74.60 TECHNIQUE: Ultrasound abdomen performed using standard protocol. COMPARISON: US US RENAL from 01/31/2021 FINDINGS: There is no ascites evident. LIVER: Liver is slightly prominent in size and hyperechoic indicating steatosis. There are no discre te focal hepatic lesions evident. GALLBLADDER/BILIARY: The gallbladder surgically absent. The common hepatic duct isdilated, measuring 9-10mm at the level of morris hepatis. This is probably related to post cholecystectomy status. PANCREAS: There is no evidence of pancreatic mass nor dilatation of the pancreatic duct. RIGHT KIDNEY:No evidence of solid mass, calculus, nor hydronephrosis. No cortical cysts evident. IMPRESSION: 1. Gallbladder surgically absent. Common hepatic duct and CBD appear dilated. Correlation with mirian ropriate blood work recommended to determine if further imaging with CT scan would recommended. 2. Hepatic steatosis. Correlation appropriate hepatic blood work recommended. 3. There is no ascites. DATA REPOSITORY:
== END 2021-09-10 02:05 ==
PROVIDERS: PCP Family Medicine; Visit Provider Physician Assistant Medical
DX: K74.60 Unspecified cirrhosis of liver (principal); K76.0 Fatty (change of) liver, not elsewhere classified
CPT/HCPCS: 76705

== ENCOUNTER → 2021-09-17 10:35 | Outpatient (BNVA) | payer MEDICARE, SELFPAY | PROVIDERS: PCP Family Medicine; Referring Provider Family Medicine; Visit Provider Student in an Organized Health Care Education/Training Program | DX: Z47.89 Encounter for other orthopedic aftercare (principal); M25.561 Pain in right knee ==

== ENCOUNTER 2021-09-20 02:12 | Outpatient (CLI) | payer MEDICARE, SELFPAY ==
[2021-09-20 13:05] LABS: Hemoglobin A1C 6.2 % (<5.7)
[2021-09-20 13:14] LABS: Cholesterol 162 mg/dL (<200); Triglyceride 145 mg/dL (<150)
[2021-09-20 13:15] LABS: Calculated LDL 93 mg/dL (<100); HDL Cholesterol 40 mg/dL (40-60)
[2021-09-20 14:51] LABS: COMMENT (LAB VIEW ONLY) 80.81 mg/dL; Microalb ug/mg Crea 3.6 ug/mg Cr
== END 2021-09-20 02:13 | disposition home or self-care (01) ==
LOC: LOS 02:12
PROVIDERS: PCP Family Medicine; Visit Provider Family Medicine
DX: E11.9 Type 2 diabetes mellitus without complications (principal)
CPT/HCPCS: 36415; 80061; 82043; 82570; 83036

== ENCOUNTER → 2021-10-15 11:14 | Outpatient (BNVA) | payer MEDICARE, SELFPAY | PROVIDERS: PCP Family Medicine; Visit Provider Student in an Organized Health Care Education/Training Program | DX: Z47.89 Encounter for other orthopedic aftercare (principal); M25.561 Pain in right knee | CPT/HCPCS: 20610; J1040 ==

== ENCOUNTER → 2021-11-12 13:23 | Outpatient (BNVA) | payer MEDICARE, SELFPAY | PROVIDERS: PCP Family Medicine; Referring Provider Family Medicine | DX: Z47.89 Encounter for other orthopedic aftercare (principal) ==

== ENCOUNTER 2021-12-12 03:20 | Outpatient (CLI) | payer MEDICARE, SELFPAY ==
[2021-12-12 11:32] LABS: ALT 119 U/L (14-59); AST 78 U/L (15-37); Albumin 3.6 g/dL (3.4-5.0); Alkaline Phosphatase 181 U/L (46-116); Bilirubin, Direct 0.2 mg/dL (0.0-0.2); Bilirubin, Total 0.4 mg/dL (0.2-1.0); Total Protein 7.2 g/dL (6.4-8.2)
== END 2021-12-12 03:21 | disposition home or self-care (01) ==
LOC: LBO 03:20
PROVIDERS: Internal Medicine Gastroenterology; PCP Family Medicine; Visit Provider Physician Assistant Medical
DX: K75.81 Nonalcoholic steatohepatitis (NASH) (principal); K74.60 Unspecified cirrhosis of liver
CPT/HCPCS: 36415; 80076

== ENCOUNTER 2022-01-03 01:08 | Outpatient (CLI) | payer MEDICARE, SELFPAY ==
--- NOTE | 2022-01-03 06:45 | DI.CT_ITS ---
Exam(s) CT ABDOMEN WO/W EXAM: CT ABDOMEN WO/W CLINICAL HISTORY: F/U ADRENAL NODULE, E27.8 TECHNIQUE: COMPARISON: CT CT CHEST/ABD/PEL W from 10/27/2020 FINDINGS: Visualized lung bases are clear. Liver: Somewhat cirrhotic appearing again noted. Mildly hypoechoic dense implying an element of stea tosis. No obvious discrete focal hepatic lesions evident on this noninfused study and no dilated int rahepatic ducts evident. Biliary: The gallbladder is again noted be surgically absent. CBD is again noted to be somewhat dila humera, unchanged and most probably related to post cholecystectomy status. There are no calculi in the lower CBD. Pancreas: No mass nor pancreatic duct dilatation evident. Spleen: Upper normal size. Kidneys: Right kidney is unremarkable. Previously described prominent cyst in the superior pole the left kidney is again noted, measuring 4.7 cm diameter, unchanged. Lower down left kidney the previou sly described partially exophytic hyperdense nodule appears smaller on the present study. I suspect suspect that this was a hemorrhagic cyst that has subsequently decompressed. There is a small 8 mill imeter benign cortical cyst medially in the left kidney also noted. A few tiny benign cortical cysts are evident in the opposite-right kidney. No calculi. No hydronephrosis nor hydroureter evident. No significant filling defects in the renal pelves. Abdominal aorta: Not enlarged. Also no para-aortic adenopathy. ADRENAL GLANDS: Right adrenal gland is unremarkable. The previously described nodule in the left adr enal gland presently measures 1.9 AP by 1.6 cm wide. Craniocaudal measurement is 1.3 cm. Although t his measurement is none smaller than the prior measurement, visually it looks unchanged in size. Thi s nodule exhibits homogeneous internal enhancement following contrast injection. Relatively quick wa shout demonstrated Osseous: No significant osseous lesions. IMPRESSION: 1. Previously described non-cystic nodular density in the left kidney has decreased in size. I suspe ct this was a hemorrhagic cyst. 2. Left adrenal gland nodule is unchanged in size from CT scan of 10/27/2020 implying that it is prob ably a benign adenoma. It enhances homogeneously. If clinically indicated I would recommend noninfu sed dedicated MRI of the adrenal glands using chemical shift imaging in and out of phase sequences. This is the most specific test to determine whether adrenal gland is a benign adenoma or not. This c an be performed in 6 months, given that the adrenal gland does not appear to have enlarged from the 2019 study. 3. There are no findings in the opposite-right adrenal gland. 4. Gallbladder is again noted be surgically absent. 5. Somewhat cirrhotic appearing liver again noted. Spleen size is upper normal. There is no ascites .
--- NOTE | 2022-01-03 06:45 | DI.CT_ITS ---
Exam(s) CT CHEST WO EXAM: CT CHEST WO CLINICAL HISTORY: f/u PULMONARY NODULES,R91.1. TECHNIQUE: Multi planar reconstructions were performed. CONTRAST MATERIAL: None COMPARISON: CT CT CHEST/ABD/PEL W from 10/27/2020 FINDINGS: CHEST: LUNGS: The previously described small right lung nodule at the right middle lobe level is again noted , unchanged. There is a possibly that this is at the pleural reflection between the right upper and right middle lobes. There is also mild infiltrate in the medial segment of the right middle lobe adj acent to the heart border which is also unchanged. No right pleural effusion. In the opposite-left lung there are mild increased markings in the lingular segment noted. No ominou s left lung nodules. No pleural effusions on either side. No significant focal findings in trachea and mainstem bronchi. MEDIASTINUM: There is no obvious hilar nor mediastinal adenopathy. Visualized thyroid unremarkable.No obvious axillary adenopathy CARDIAC: Heart size is normal. There is no pericardial effusion.Caliber of the thoracic aorta is wit hin normal limits. VISUALIZED UPPER ABDOMEN:Left adrenal nodule again noted. Presently measures 2.1 by 1.6 cm, unchange d. OSSEOUS: No significant osseous lesions.. IMPRESSION: 1. Stable appearance of the solitary right lung nodule, unchanged from October 2020 CT scan. No new pulmonary nodules no pleural effusions. Mild infiltrate in the right middle lobe and atelectasis in the lingular segment of the left lung noted. No intrathoracic adenopathy. 2. 2.1 cm nodule in the left adrenal gland is unchanged from the prior CT listed above. RADIATION DOSE DELIVERED: 533.91mGy.cm Total DLP DATA REPOSITORY: All CT scans at this facility are submitted to the National Radiology Data Registry (NRDR) Dose Index Registry (DIR) with the [employer] (A[employer]). RADIATION OPTIMIZATION: All CT scans at this facility use at least one of these dose optimization te chniques: automated exposure control; mA and/or kV adjustment per patient size (includes targeted exa ms where dose is matched to clinical indication); or iterative reconstruction.
[2022-01-03 08:38] LABS: CREATININE 0.8 mg/dL (0.55-1.02)
[2022-01-03] MEDS: Omnipaque 350 MG/ML 100 ML BTL IJ (09:13)
== END 2022-01-03 01:28 ==
PROVIDERS: PCP Family Medicine; Visit Provider Family Medicine
DX: R91.1 Solitary pulmonary nodule (principal); E27.8 Other specified disorders of adrenal gland; J98.11 Atelectasis
CPT/HCPCS: 71250; 74170; 82565; J3490

== ENCOUNTER 2022-02-21 02:31 | Outpatient (CLI) | payer MEDICARE, SELFPAY ==
[2022-02-21 16:03] LABS: Anion Gap 10.3 mmol/L (3-11); BUN 22 mg/dL (7-18); CO2 25.7 mmol/L (21.0-32.0); CREATININE 0.9 mg/dL (0.55-1.02); Calcium 9.4 mg/dL (8.5-10.1); Chloride 102 mmol/L (98-107); Glucose 118 mg/dL (74-106); Potassium 4.2 mmol/L (3.5-5.1); Sodium 138 mmol/L (136-145); TSH (W/Ref FT4) 3.47 uIU/mL (0.36-3.74)
== END 2022-02-21 02:32 | disposition home or self-care (01) ==
LOC: LBO 02:31
PROVIDERS: PCP Family Medicine; Visit Provider Family Medicine
DX: I10 Essential (primary) hypertension (principal); E03.9 Hypothyroidism, unspecified
CPT/HCPCS: 36415; 80048; 84443

== ENCOUNTER → 2022-03-19 00:42 | Outpatient (CLI) | payer MEDICARE, SELFPAY ==
--- NOTE | 2022-03-19 08:00 | DI.US_ITS ---
Exam(s) US ABDOMEN LIMITED EXAM: US ABDOMEN LIMITED CLINICAL HISTORY: LIVER CIRRHOSIS SECONDARY TO BRIAN, K75.81, K74.60; SCREEN FOR HEPATOMA TECHNIQUE: Ultrasound abdomen performed using standard protocol. COMPARISON: US US ABDOMEN LIMITED from 09/10/[address] ABDOMEN WO/W from 01/03/2022 FINDINGS: There is no ascites evident. LIVER: Liver exhibits coarse echotexture and is hyperechoic indicating steatosis. Somewhat nodular s urface implying probable element of cirrhosis. GALLBLADDER/BILIARY: Gallbladder surgically absent. The common hepatic duct isnot dilated, measuring 5mm at the level of morris hepatis. PANCREAS: There is no evidence of pancreatic mass nor dilatation of the pancreatic duct. RIGHT KIDNEY:No evidence of solid mass, calculus, nor hydronephrosis. No cortical cysts evident. ABDOMINAL AORTA AND IVC: Visualized portions exhibit normal caliber. IMPRESSION: 1. The gallbladder surgically absent. The biliary tree is not dilated. 2. Somewhat cirrhotic appearing liver with steatosis also evident. There are no obvious discrete fo jo-ann hepatic lesions. 3. There is no ascites. DATA REPOSITORY:
== END ==
PROVIDERS: PCP Family Medicine; Visit Provider Physician Assistant Medical
DX: K74.60 Unspecified cirrhosis of liver (principal); K75.81 Nonalcoholic steatohepatitis (NASH); Z12.89 Encounter for screening for malignant neoplasm of other sites; Z90.49 Acquired absence of other specified parts of digestive tract
CPT/HCPCS: 76705

== ENCOUNTER 2022-03-19 01:51 | Outpatient (CLI) | payer MEDICARE, SELFPAY ==
[2022-03-19 07:59] LABS: Abs Immature Grans 0.03 10^3/uL (0.0-0.06); Absolute Basophil Count 0.04 10^3/uL (0.0-0.2); Absolute Eosinophil Count 0.16 10^3/uL (0.0-0.7); Absolute Lymphocyte Count 1.64 10^3/uL (1.2-3.4); Absolute Monocyte Count 0.47 10^3/uL (0.1-0.8); Absolute Neutrophil Count 3.23 10^3/uL (1.2-6.7); Basophils % 0.7; Eosinophils % 2.9; HCT 40.6 % (36.0-46.0); HGB 12.8 g/dL (11.2-15.7); Immature Grans % 0.5; Lymphocytes % 29.4; MCHC 31.5 % (32.0-36.0); MCV 82 fL (80-95); MPV 10.6 fL (8.0-11.0); Monocytes % 8.4; Neutrophils % 58.1; Platelet Count 216 10^3/uL (130-400); RBC 4.93 10^6/uL (3.93-5.22); RDW 14.6 % (11.7-14.6); RDW-SD 43.4 fL; WBC 5.57 10^3/uL (4.4-10.8)
[2022-03-19 08:34] LABS: ALT 109 U/L (14-59); AST 75 U/L (15-37); Albumin 3.8 g/dL (3.4-5.0); Alkaline Phosphatase 174 U/L (46-116); Anion Gap 7.5 mmol/L (3-11); BUN 21 mg/dL (7-18); Bilirubin, Direct 0.1 mg/dL (0.0-0.2); Bilirubin, Total 0.4 mg/dL (0.2-1.0); CO2 27.5 mmol/L (21.0-32.0); CREATININE 0.9 mg/dL (0.55-1.02); Calcium 9.2 mg/dL (8.5-10.1); Chloride 102 mmol/L (98-107); Glucose 116 mg/dL (74-106); Potassium 4.1 mmol/L (3.5-5.1); Sodium 137 mmol/L (136-145); Total Protein 7.7 g/dL (6.4-8.2)
[2022-03-19 08:38] LABS: Hemoglobin A1C 6.4 % (<5.7)
[2022-03-19 09:54] LABS: Prothrombin Time 10.4 sec (9.3-11.0)
[2022-03-20 11:32] LABS: AFP Tumor Marker 2.7 ng/mL (<8.1)
== END 2022-03-19 01:52 | disposition home or self-care (01) ==
PROVIDERS: Physician Assistant Medical; PCP Family Medicine; Visit Provider Family Medicine
DX: E11.9 Type 2 diabetes mellitus without complications (principal); E66.9 Obesity, unspecified; K75.81 Nonalcoholic steatohepatitis (NASH); K74.60 Unspecified cirrhosis of liver
CPT/HCPCS: 36415; 80053; 80076; 76705; 82105; 83036; 85025; 85610

== ENCOUNTER 2022-03-25 09:43 | Outpatient (CLI) | payer MEDICARE, SELFPAY ==
--- NOTE | 2022-03-25 08:15 | DI.RAD_ITS ---
Exam(s) XR KNEE RT 3V AP,LAT,MERLINE EXAM: XR KNEE RT 3V AP,LAT,MERLINE CLINICAL HISTORY: right knee pain. TECHNIQUE: 2D digital imaging was performed of the right knee. Three views obtained. AP, lateral an d PA tunnel views were obtained. COMPARISON: CR XR KNEE RT 4V AP,LAT,MERLINE,PAT from 06/29/2021 FINDINGS: BONES: No acute fracture is present. No bony destructive lesion is seen. There is a small enthesophyt e at the superior patella. JOINTS: There is mild narrowing of the medial femoral tibial joint. There does appear to be a small joint effusion. There is periarticular spurring of the posterior patella. SOFT TISSUE: Normal. IMPRESSION: Mild degenerative changes of the right knee. DATA REPOSITORY: RADIATION DOSE DELIVERED:
== END 2022-03-25 09:44 | disposition home or self-care (01) ==
LOC: DIORS 09:44
PROVIDERS: PCP Family Medicine; Referring Provider Family Medicine; Visit Provider Student in an Organized Health Care Education/Training Program
DX: G56.01 Carpal tunnel syndrome, right upper limb (principal); M23.91 Unspecified internal derangement of right knee; X58.XXXA Exposure to other specified factors, initial encounter; S83.241A Other tear of medial meniscus, current injury, right knee, initial encounter
CPT/HCPCS: 73562; 99213

== ENCOUNTER → 2022-04-16 00:48 | Outpatient (CLI) | payer MEDICARE, SELFPAY ==
--- NOTE | 2022-04-16 07:00 | DI.MRI_ITS ---
Exam(s) MR LOWER JOINT RT WO EXAM: MR LOWER JOINT RT WO CLINICAL HISTORY: rt knee pain, internal derangement, m23.91. TECHNIQUE: Multiplanar multisequence MRI was performed. COMPARISON: MR MR LOWER JOINT RT WO from 07/25/2021 CR XR KNEE RT 3V AP,LAT,MERLINE from 03/25/2022 FINDINGS: BONES: There is no fracture or contusion pattern. JOINTS: Patellofemoral cartilage shows mild thinning. Thinning and irregularity of the cartilage of the overlying the medial femoral condyle.. A moderate-sized effusion is present. TENDONS: Extensor mechanism: Unremarkable. Medial retinaculum: Unremarkable. Lateral retinaculum: Unremarkable. Popliteus: Unremarkable. MUSCLES: Unremarkable. MENISCI: The medial meniscus shows abnormal increased signal in the posterior horn which appears to e xtend to the inferior articular surface. There is some blunting at the apex.. The body is diminutiv e. This could be secondary to degenerative or post surgical changes. No displaced fragment is ident ified. The anterior horn appears intact. The lateral meniscus is unremarkable. SOFT TISSUES: Small Kumar's cyst. Mild edema in the anterior subcutaneous fat. LIGAMENTS: Anterior Cruciate: Unremarkable. Posterior Cruciate: Unremarkable. Medial Collateral:Unremarkable. Lateral Collateral: Unremarkable. IMPRESSION: Degenerative changes of the medial femoral tibial joint and medial meniscus with question of superimp osed tear of the posterior horn. The body is diminutive, degenerative versus postsurgical.. Joint e ffusion and small Kumar's cyst. DATA REPOSITORY:
== END ==
PROVIDERS: PCP Family Medicine; Visit Provider Student in an Organized Health Care Education/Training Program
DX: M25.561 Pain in right knee; M23.8X1 Other internal derangements of right knee; M25.461 Effusion, right knee; M71.21 Synovial cyst of popliteal space [Baker], right knee; S83.241A Other tear of medial meniscus, current injury, right knee, initial encounter; M17.11 Unilateral primary osteoarthritis, right knee
CPT/HCPCS: 73721

== ENCOUNTER 2022-04-17 06:09 | Day surgery (SDC) | payer MEDICARE, SELFPAY ==
--- NOTE | 2022-04-17 06:15 | ANES.PREOP_ITS ---
General Info Date of Service Date Performed: 04/17/22 Height: 5 ft 3 in Weight: 88.451 kg Body Mass Index (BMI): 34.5 Surgical Procedure: Operation Date: 04/17/22 07:40 Proposed Procedure Side Surgeon p Wrist ECTR Right Addy Rueda MD Meds Allergies and Home Medications Allergies Allergy/AdvReac Type Severity Reaction Status Date / Time apple Allergy Severe SWELLING,RAW Verified 03/29/22 12:50 APPLES Sulfa (Sulfonamide Allergy Unknown Nausea Verified 04/16/22 10:46 Antibiotics) ciprofloxacin HCl AdvReac Intermediate DIARRHEA Verified 03/29/22 12:50 [From Cipro] erythromycin base AdvReac Intermediate NAUSEA Verified 03/29/22 12:50 NSAIDS (Non-Steroidal AdvReac Verified 03/29/22 12:50 Anti-Inflamma Home Medication Medication Instructions Recorded calcium carbonate 600 mg-vitamin 1 ea PO DAILY 12/31/13 D3 5 mcg (200 unit) tablet hydrocortisone 2.5 % lotion 1 applic topical BID PRN itching 01/11/19 #118 mL nitroglycerin 0.4 mg sublingual 0.4 mg sublingual Q5-10M PRN chest 10/30/20 tablet (Nitrostat) pain #20 tabs levothyroxine 100 mcg tablet 100 mcg PO DAILY #90 tabs 08/20/21 metformin 500 mg tablet,extended 500 mg PO DAILY #90 tabs 08/20/21 release 24 hr amlodipine 5 mg tablet 5 mg PO HS 09/03/21 omeprazole magnesium 20 mg 20 mg PO DAILY #90 caps 12/19/21 capsule,delayed release atorvastatin 10 mg tablet 5 mg PO HS #45 tabs 01/14/22 bisoprolol fumarate 5 mg tablet 5 mg PO DAILY #30 tabs 02/27/22 spironolactone 50 mg tablet 50 mg PO DAILY #30 tabs 02/27/22 Current Visit Medications: Current Medications Generic Name Dose Route Start Last Admin Trade Name Freq PRN Reason Stop Dose Admin Ringer's Solution 1,000 mls @ 80 mls/hr 04/17/22 06:00 IV 05/16/22 23:59 INFUSION GEOFF Cefazolin Sodium/Dextrose 2 gm in 50 mls @ 100 mls/hr 04/17/22 06:00 Ancef Duplex IVPB 05/16/22 23:59 PREOP GEOFF IV Miscellaneous Supplies 1 each 04/17/22 06:00 Iv Access IV 05/16/22 23:59 DIRECTED GEOFF Sodium Chloride 0 ml 04/17/22 06:00 Normal Saline Flush 10 Ml Syr IV 05/16/22 23:59 PRN PRN Sodium Chloride 0 ml 04/17/22 06:00 Normal Saline 10 Ml Vial IJ 05/16/22 23:59 DIRECTED PRN Sterile Water 0 ml 04/17/22 06:00 Water,Injection,Sterile 10 Ml Vial IJ 05/16/22 23:59 DIRECTED PRN PFSH Active Problems Active Problems: Problem Status Onset Code Internal derangement of right knee M23.91 Acute carpal tunnel syndrome of right wrist G56.01 Obesity with serious comorbidity E66.9 Controlled diabetes mellitus without complication, without long-term current use of insulin E11.9 Gastroesophageal reflux disease 12/31/13 K21.9 Generalized osteoarthritis 12/31/13 M15.9 Hyperlipidemia E78.5 Hypothyroidism 01/04/14 E03.9 Pulmonary nodule R91.1 Acute medial meniscus tear of right knee S83.241A Essential hypertension I10 Cirrhosis of liver without ascites K74.60 Polyp of colon 10/09/05 K63.5 Medical History Medical History Adrenal mass 1 cm to 4 cm in diameter benign/adenoma/ MRI 2020; stable on CT 12/2021. Bilateral carpal tunnel syndrome GERD (gastroesophageal reflux disease) History of postoperative nausea Hx of tobacco use, presenting hazards to health quit 11/2016, 15 pack yr hx Medical History Comments:: per patient PONV. Surgical History Surgical History Abdominal hysterectomy 1990; MARY/BSO Cholecystectomy (~05/2003) excision of Breast cyst-Right Hx of needle biopsy (L) BREAST; pathology with atypia, led to surgical excision 08/2021 Incision & Drainage, Abscess or Hematoma left axilla Open Carpal Tunnel release 12/16-right; 01/13-left Tobacco Smoking/Tobacco Use Status: Former Tobacco Use Passive smoking exposure: Yes Second hand exposure: Yes Alcohol Alcohol Intake: never Substance Use Substance use: Never Substance use type: does not use Vital Signs and Lab Results Vital Signs Most Recent Vital Signs in EMR: Temp Pulse Resp BP Pulse Ox 36.1 C L 96 H 16 150/83 H 97 04/17/22 06:24 04/17/22 06:24 04/17/22 06:24 04/17/22 06:24 04/17/22 06:24 Lab Results Blood Type / Crossmatch: No Data to Display Complete Blood Count: White Blood Count 5.57 10^3/uL (4.4-10.8) 03/19/22 07:20 Red Blood Count 4.93 10^6/uL (3.93-5.22) 03/19/22 07:20 Hemoglobin 12.8 g/dL (11.2-15.7) 03/19/22 07:20 Hematocrit 40.6 % (36.0-46.0) 03/19/22 07:20 Platelet Count 216 10^3/uL (130-400) 03/19/22 07:20 Complete Metabolic Panel: Sodium Level 137 mmol/L (136-145) 03/19/22 07:20 Potassium Level 4.1 mmol/L (3.5-5.1) 03/19/22 07:20 Chloride Level 102 mmol/L (98-107) 03/19/22 07:20 Carbon Dioxide Level 27.5 mmol/L (21.0-32.0) 03/19/22 07:20 Blood Urea Nitrogen 21 mg/dL (7-18) H 03/19/22 07:20 Creatinine 0.9 mg/dL (0.55-1.02) 03/19/22 07:20 Estimated GFR/1.73 m2 >= 60.00 (mL/min/1.73m2) 03/19/22 07:20 Calcium Level 9.2 mg/dL (8.5-10.1) 03/19/22 07:20 Albumin 3.8 g/dL (3.4-5.0) 03/19/22 07:20 Glucose Level 116 mg/dL (74-106) H 03/19/22 07:20 Hemoglobin A1c 6.4 % (<5.7) H 03/19/22 07:15 Liver Function Panel: Alanine Aminotransferase (ALT/SGPT) 109 U/L (14-59) H 03/19/22 07:20 Aspartate Amino Transf (AST/SGOT) 75 U/L (15-37) H 03/19/22 07: 20 Coagulation Panel: INR International Normalized Ratio 1.0 (0.9-1.1) 03/19/22 07:2 0 Prothrombin Time 10.4 sec (9.3-11.0) 03/19/22 07:20 Cardiac Panel: No Data to Display Arterial Blood Gas: No Data to Display Venous Blood Gas: No Data to Display Pancreas Panel: No Data to Display Thyroid Panel: No Data to Display Infectious Disease: No Data to Display Blood Cultures: No Data to Display Toxicology Panel: No Data to Display Imaging and Studies Imaging and Studies Study information below may be from another EMR and interpreted by another provider. Please see original notes in EMR for more complete details. EKG Summary: 10/27/20: Sinus rhythm Stress Test Summary: DATE/TIME OF SERVICE: 11/16/20 Exam: Exercise Treadmill Indications: Patient reports 5/10 sternal, nonradiating chest pain/pressure during light housework with associated lightheadedness and nausea, lasting several hours. Stress ECG Conclusion 1. The patient exercised for 5 minutes (7 METS). Exercise was stopped due to muscle fatigue. 2. There was no evidence of ischemia on the ECG portion of the exam. The patient did have multiple PVCs during peak exercise and immediate recovery. 3. The Patino Score (5) estimates an annual cardiovascular mortality of 1% and a five year survival of 94%. Using the Patino Score there is a low probability of any angiographic coronary disease. Patino Treadmill Score is 4.6 which is Moderate risk. Anesthesia Assessment and Plan Anesthesia History Personal History: PONV and Delayed Emergence Family History: No Family History of Anesthesia Complications Exercise Tolerance Exercise Tolerance: Metabolic Equivalents>4 Cardiac & Pulmonary Exam Cardiac Exam: Normal S1/S2 Heart Sounds Pulmonary Exam: Clear Bilateral Breath Sounds Implantable Cardiac Device Does patient have a Pacemaker or an ICD?: No Airway Exam Known Difficult Airway: No Mallampati Class: 1 Mouth Opening: Normal (> 3cm) Thyromental Distance: Greater than 3 cm Neck Range of Motion: Full ROM Neck Circumference: Normal Teeth Condition: Normal Dentition ASA Classification ASA Score: ASA 2 Emergency Case?: No NPO Status NPO Status: NPO Clears >2 hours, Solids >8 hours Anesthesia Plan Resuscitation Status: Full Code Anesthesia Technique: General Anesthesia Airway Planned: Natural Airway Monitors Used: Standard Monitors Preoperative Comments:: 71 yo female with CTS for ECTR right wrist. Sig PMHx: GERD (omeprazole), DM2 (metformin), pulm nodule, cirrhosis, hypothyroid (on replacement), HTN (amlodipine). Previous Anes: LMA 4
[2022-04-17 06:24] VITALS: BP 150/83; PULSE 96; RESP 16; TEMP 36.1; O2SAT 97
[2022-04-17] MEDS: Lactated Ringers 1,000 ML 80 ML IV (06:55)
[2022-04-17 06:59] VITALS: BMI 34.5
[2022-04-17] MEDS: ceFAZolin 2 GM/50 ML BAG IVPB (07:24)
--- NOTE | 2022-04-17 07:28 | PDOC.DSDIS_ITS ---
Discharge Plan Disposition Patient Disposition: HOME Condition: Stable Discharge Details Reason For Visit: Right ECTR Attending Provider: Addy Rueda Primary Care Provider: Trish Healy Home Meds and New Rx's Prescriptions: New acetaminophen 500 mg capsule 1,000 mg PO Q8H PRN PRNQty: 30 0RF Continued hydrocortisone 2.5 % lotion 1 applic TP BID PRN (Reason: itching) Qty: 118 1RF nitroglycerin [Nitrostat] 0.4 mg tablet, sublingual 0.4 mg sublingual Q5-10M PRN (Reason: chest pain) Qty: 20 0RF Rx Instructions: limit 3 doses and if no response call 911. omeprazole magnesium 20 mg capsule,delayed release(DR/EC) 20 mg PO DAILY Qty: 90 4RF spironolactone 50 mg tablet 50 mg PO DAILY Qty: 30 2RF levothyroxine 100 mcg tablet 100 mcg PO DAILY Qty: 90 4RF Rx Instructions: TABLETS ONLY metformin 500 mg tablet extended release 24 hr 500 mg PO DAILY Qty: 90 4RF calcium carbonate-vitamin D3 1 EACH tablet 1 ea PO DAILY atorvastatin 10 mg tablet 5 mg PO HS Qty: 45 3RF Rx Instructions: dispense 90 tablets bisoprolol fumarate 5 mg tablet 5 mg PO DAILY Qty: 30 1RF Label Comments: Per patient she is not currently taking. amlodipine 5 mg tablet 5 mg PO HS Rx Instructions: take one tablet daily for high blood pressure Discharge Instructions Stand Alone Forms: Mohit Roman Tunnel Release Referrals: Addy Rueda MD [ [facility] STAFF PHYSICIAN] - Activity:: Activity as Tolerated Remove Dressings/Wound Care:: 72 hours Shower/Bathe:: 72 hours Diet:: As Tolerated Discharge Orders Discharge Orders: Discharge Order (Routine); Ordered 04/17/22 Ordered By: Raven Fontana DS: Diagnosis Discharge Diagnosis (1) Acute carpal tunnel syndrome of right wrist: Status: Acute
[2022-04-17] MEDS: Sodium Bicarbonate 50 MEQ/50 ML VIAL (07:32)
[2022-04-17] MEDS: Lidocaine 1% Multi-Dose W/EPI 1/100,000 50 ML VIAL (07:32)
[2022-04-17 07:45] VITALS: BP 130/82; PULSE 102; RESP 16; TEMP 36.1; O2SAT 94
--- NOTE | 2022-04-17 08:07 | W.ANESPOSTOP ---
Postoperative Evaluation Date, Time and Location Date Performed: 04/17/22 Time Performed: 08:07 Patient Location: Day Surgery Unit Vital Signs Most Recent Imported Vital Signs: Most Recent Vital Signs Temp Pulse Resp BP Pulse Ox 36.1 C L 102 H 16 130/82 94 04/17/22 07:45 04/17/22 07:45 04/17/22 07:45 04/17/22 07:45 04/17/22 07:45 Pain Score Most Recent Pain Score: Most Recent Pain Score Pain Level 0 04/17/22 07:45 Assessment Mental Status: Awake (Alert & Oriented to Patient Baseline) Airway and Respiratory Function: Patent airway with normal (patient baseline) respiratory exam Cardiovascular Function: Hemodynamically Stable Hydration Status: Adequately Hydrated Nausea & Vomiting: No Nausea or Vomiting Pain: Pt. Denies Any Pain Peripheral Nerve Block: Patient did not receive a nerve block
[2022-04-17] MEDS: Acetaminophen 325 MG TAB 650 MG PO (08:13)
[2022-04-17 08:19] VITALS: BP 145/83; PULSE 82; RESP 16; TEMP 36.4; O2SAT 96
--- NOTE | 2022-04-17 09:07 | W.PM.OP ---
Date of service: 04/17/22 Time of Service: 07:40 Operative Note Operative Note DATE OF PROCEDURE: 04/17/22 PRE-OP DIAGNOSIS: Recurrent Right Carpal Tunnel Syndrome POST-OP DIAGNOSIS: same PROCEDURE: Right Endoscopic Carpal Tunnel Release SURGEON: Addy Rueda ANESTHESIA TYPE: General:No Airway Refer to Anesthesia Record ESTIMATED BLOOD LOSS: 0 PATHOLOGY: none sent TOURNIQUET TIME: 6 COMPLICATIONS: None Patient was transported to: same day Patient's condition: stable Indications: I have seen Sheron in clinic for symptoms of carpal tunnel syndrome. The numbness, tingling, and pain limited function. Clinical exam findings with nerve conduction tests confirmed the diagnosis of recurrent carpal tunnel syndrome, previous endoscopic release performed over 10 years prior. Nonoperative measures such as bracing, time, activity modifications had been tried but disability and pain persisted. I discussed carpal tunnel release with the patient. I reviewed the risks of the procedure to include, but not limited to, bleeding, infection, pain, stiffness, incomplete release, damage to nerves or vessels, persistent numbness, recurrence. Despite these risks, the patient elected to proceed. Findings: There was tightened carpal tunnel mostly of the distal extent and of the volar fascia. This was dilated and released successfully with the endoscopic with increased space within the tunnel. The antebrachial fascia was released proximally freeing the median nerve at the wrist. Procedure Description: Sheron was greeted in the preoperative holding area where the correct side was identified and marked. The consent was reviewed with the patient and signed. The history and physical was updated. All questions were answered. SHe was taken back to the operating room. The patient was placed into the supine position on the operating room table with the right arm on an arm board. A nonsterile tourniquet was placed high onto the arm. All bony prominences were well padded. Prophylactic antibiotics in the form of Cefazolin were administered. The right arm was then prepped with Chloraprep and draped in a standard fashion with stockinette and extremity drape. A timeout to confirm correct identity, side and site, procedure, allergies, anesthesia, and medical concerns was performed. The surgical site was marked in the volar wrist creases in line with the radial border of the fourth ray. This area was anesthetized with approximately 6cc of 1% Lidocaine. The limb was then exsanguinated with an Esmarch. The skin was incised with a 15 blade, approximately 1cm. The skin only was cut and the deeper tissue was dissected bluntly with a tenotomy scissor, avoiding passing nerve and venous structures. The fascia was penetrated and opened bluntly. A two-prong skin hook was placed under this proximal fascial edge. A series of hamate finders were used to identify and dilate the carpal tunnel. Synovial elevator was used to free synovial attachments to the underside of the transverse carpal ligament. My thumb was kept in the palm to mauricio the distal extent of the carpal tunnel and correctly position the hand. The Microaire endoscope was inserted without difficulty and without resistance. Excellent visualization showed horizontally running fibers of the transverse carpal ligament (TCL) of the distal extend and less obvious proximally. The distal extent of the TCL was visualized and the end of the scope palpated with the thumb. The blade was elevated and withdrawn from distal to proximal. The TCL was split into two flaps. The endoscope was reinserted to confirm complete release and any remnant ligament was incised. The scope was withdrawn and the proximal aspect of the carpal tunnel was grossly inspected and appeared release with the median nerve visible. The antebrachial fascia at the level of the wrist was tight and was then freed from the overlying skin and then the underlying median nerve with blunt dissection. This was transected longitudinally for about 3cm proximal to the wrist incision. The wound was then irrigated with easy flow of irrigant distally and proximally. The incision was closed with a single 4-0 Nylon suture. The wound was dressed with Xeroform, Gauze, Kerlix and Fito. The tourniquet was deflated with the initial dressing and held with some pressure. Blood flow returned easily to all digits with capillary refill less than 2 seconds. The patient tolerated the procedure well and was returned to the Same Day Surgery area in a stable condition suffering no known complication.
== END 2022-04-17 08:41 | disposition home or self-care (01) ==
PROVIDERS: PCP Family Medicine; Visit Provider Student in an Organized Health Care Education/Training Program
PROC: 01N54ZZ Release Median Nerve, Percutaneous Endoscopic Approach (ICD-10-PCS; CPT 29848; principal; 2022-04-17 07:30)
DX: G56.01 Carpal tunnel syndrome, right upper limb (principal); I10 Essential (primary) hypertension; E78.5 Hyperlipidemia, unspecified; E03.9 Hypothyroidism, unspecified
CPT/HCPCS: 29848; J0690; J2405

== ENCOUNTER → 2022-04-25 10:20 | Outpatient (BNVA) | payer MEDICARE, SELFPAY | PROVIDERS: PCP Family Medicine; Referring Provider Family Medicine; Visit Provider Student in an Organized Health Care Education/Training Program | DX: M23.91 Unspecified internal derangement of right knee (principal); G56.01 Carpal tunnel syndrome, right upper limb ==

== ENCOUNTER → 2022-06-26 01:21 | Outpatient (CLI) | payer MEDICARE, SELFPAY ==
--- NOTE | 2022-06-26 07:27 | DI.US_ITS ---
APPROVED REPORT EXAM: Comprehensive 2D, Doppler, and color-flow Echocardiogram Patient Location: Out-Patient Amortization Schedule Clerk: Marivel Bernstein RDCS (AE) Indications: New murmur, Systolic Other Information Study Quality: Adequate Conclusion Normal left ventricular wall thickness and chamber size. Estimated ejection fraction is 60%. Wall m otion is normal Normal right ventricular size and systolic function Both atria are normal in size The aortic valve is trileaflet, mildly sclerotic, without stenosis or regurgitation Mild mitral annular calcification. Trace to mild mitral regurgitation Wall motion Left Ventricle The left ventricle is normal size. The left ventricular systolic function is normal. The left ventric ular ejection fraction is within the normal range. There is normal left ventricular wall thickness. T here is normal LV segmental wall motion. There is no ventricular septal defect visualized. LVEF is 59 %. Right Ventricle The right ventricle is normal size. The right ventricular systolic function is normal. The RVSP is 20 .0 mmHg. Atria The left atrium size is normal. The right atrium size is normal. The interatrial septum is intact wit h no evidence for an atrial septal defect. Aortic Valve The aortic valve is mildly sclerotic Aortic valve is trileaflet. There is no aortic valvular stenosis . No aortic regurgitation is present. Mitral Valve Mild mitral annular calcification. No evidence of mitral valve stenosis. Trace to mild mitral regurgi tation. Tricuspid Valve The tricuspid valve is normal in structure. There is no tricuspid valve stenosis. Trace tricuspid reg urgitation. Pulmonic Valve Pulmonic valve is not well visualized. There is no pulmonic valvular stenosis. There is no pulmonic v alvular regurgitation. Great Vessels The aortic root is normal in size. The ascending aorta is normal in size. Aortic arch is not well vis ualized. IVC is normal in size and collapses >50% with inspiration. Pericardium There is no pericardial effusion. 2D Dimensions IVSD d PLAX 0.90 cm F: 0.6-1.0 LV Vol A2C d MOD 76.6 mL LVPW d PLAX 0.91 cm F: 0.6 - 1.0 LV Vol A4C d MOD 79.5 mL LVID d PLAX 4.62 cm F: 3.8 - 5.2 LA vol/ BSA A2C s A-L 15.8 mL/m2 LVDs 3.25 cm F: 2.2 - 3.5 LA vol/ BSA A4C s A-L 13.8 mL/m2 Ao Root d 2.77 cm F: 2.7 - 3.3 LA Vol/ BSA Biplane s A-L 15.1 mL/m2 RA Area A4C 11.17 cm2 LA Area A4C s MOD 12.12 cm2 RA Vol/ BSA A4C s A-L 12.3 mL/m2 LA Area A2C s MOD 12.63 cm2 Ao Asc Diam d 3.09 cm F: 2.3 - 3.1 LV EF A4C MOD 59.4 % LV EF Teichholz 56.6 % LV EF A2C MOD 59.5 % LVEF (Figueroa's) 58.89 % F: 54 - 74 LV EF Biplane MOD 58.9 % LV Volume 60.33 mL F: 46 - 106 SV 46.49 mL LV Volume Index 31.92 mL/m2 F: 29 - 61 SV Index 24.57 mL/m2 LV Vol Biplane MOD 78.9 mL FS 29.50 % M-Mode TAPSE 2.56 cm (M/F) >1.7 LV Diastology MV E' medial 0.072 (>0.07 m/s) E/A Ratio 1.0 LV E/e MED 11.45 (<14) MV E Vmax 0.83 (0.4-1.3 m/s) MV E' lateral 0.094 (>0.1 m/s) MV A Vmax 0.80 (0.4-1.3 m/s) LV E/e LAT 8.75 (<14) MV E/A Ratio 1.02 MV E/E' medial 11.48 MV E/E' lateral 8.80 Aortic Valve LVOT Area 2.75 cm2 AoV Area Vmax 2.09 cm2 LVOT Vmax 1.25 m/s AoV Area/ BSA (Vmax) 1.11 cm2/m2 LVOT Mean Waylon. 0.80 m/s WILLIAM Mean Waylon. 1.92 cm2 LVOT Peak Grad 6.3 mmHg WILLIAM Mean Waylon. Index 1.02 cm2/m2 LVOT Mean Grad 3.0 mmHg LVOT VTI 0.268 m LVOT Diam s 1.85 cm AoV Vmax 1.65 m/s Velocity Ratio 0.75 AoV Mean Waylon. 1.15 m/s AoV Peak Grad 10.9 mmHg LVOT SV 73.93 mL AoV Mean Grad 6.0 mmHg AoV VTI 0.325 m AoV Area VTI 2.27 cm2 AoV Area/ BSA (VTI) 1.20 cm/m2 Mitral Valve MV DT 186 (160-240 msec) MV PHT 54 msec MV Area PHT 4.07 cm2 MV VTI 0.267 m MV Area VTI 2.77 (4.0-6.0 cm2) Pulmonary Valve PV Vmax 0.98 (0.5-1.5 m/s) RVOT Peak Gr. 1.89 mmHg PV Peak Grad 3.9 mmHg RVOT Mean Gr. 1.00 mmHg PV Mean Grad 2.2 mmHg RVOT VTI 0.164 m PV VTI 0.196 m RVOT Vmax 0.69 m/s Tricuspid Valve TR Peak Grad 17.0 mmHg TR Vmax 2.06 m/s RA Pressure 3.00 mmHg RVSP (TR) 20.0 mmHg
== END ==
PROVIDERS: PCP Family Medicine; Visit Provider Family Medicine
DX: R01.1 Cardiac murmur, unspecified (principal); I35.8 Other nonrheumatic aortic valve disorders; I34.0 Nonrheumatic mitral (valve) insufficiency
CPT/HCPCS: 93306

== ENCOUNTER → 2022-06-27 08:48 | Outpatient (BNVA) | payer MEDICARE, SELFPAY | PROVIDERS: PCP Family Medicine; Referring Provider Family Medicine; Visit Provider Student in an Organized Health Care Education/Training Program | DX: Z47.89 Encounter for other orthopedic aftercare (principal); G56.01 Carpal tunnel syndrome, right upper limb; M23.91 Unspecified internal derangement of right knee ==

== ENCOUNTER 2022-08-08 04:18 | Outpatient (CLI) | payer MEDICARE, SELFPAY ==
[2022-08-08 08:37] LABS: Hemoglobin A1C 6.3 % (<5.7)
[2022-08-08 09:07] LABS: Anion Gap 6.7 mmol/L (3-11); BUN 24 mg/dL (7-18); CO2 28.3 mmol/L (21.0-32.0); Calcium 10.1 mg/dL (8.5-10.1); Chloride 102 mmol/L (98-107); Estimated GFR 59.12 (mL/min/1.73m2); Glucose 113 mg/dL (74-106); Potassium 4.5 mmol/L (3.5-5.1); Sodium 137 mmol/L (136-145)
== END 2022-08-08 04:19 | disposition home or self-care (01) ==
LOC: LBO 04:19
PROVIDERS: PCP Family Medicine; Visit Provider Family Medicine
DX: E11.9 Type 2 diabetes mellitus without complications (principal)
CPT/HCPCS: 36415; 80048; 83036

== ENCOUNTER → 2022-09-04 02:26 | Outpatient (CLI) | payer MEDICARE, SELFPAY ==
--- NOTE | 2022-09-04 | DI.US_ITS ---
Exam(s) US ABDOMEN LIMITED EXAM: US ABDOMEN LIMITED CLINICAL HISTORY: LIVER CIRRHOSIS SECONDARY TO BRIAN,K75.81,K74.50,SCREEN FOR TECHNIQUE: Ultrasound examination of the right upper quadrant was performed according to the usual p rotocol. COMPARISON: No exams were available for comparison FINDINGS: The liver has a nodular contour raising the possibility of cirrhosis.. Hepatic parenchyma shows incr eased echogenicity consistent with hepatic steatosis. No focal lesion identified. Portal venous flow is hepatopetal. There is a prior cholecystectomy. No biliary dilatation. Unremarkable appearance of the pancreas. Right kidney appears normal with no hydronephrosis or nephrolithiasis. Incidental note is made of a simple cyst of the left kidney measuring about 5 cm in greatest diameter . Abdominal aorta and IVC are of normal diameter. IMPRESSION: Hepatic cirrhosis and hepatic steatosis. No focal lesion identified. The patient is post cholecyste ctomy. RADIATION DOSE DELIVERED: Total DLP
== END ==
PROVIDERS: PCP Family Medicine; Visit Provider Physician Assistant Medical
DX: K74.69 Other cirrhosis of liver (principal); K75.81 Nonalcoholic steatohepatitis (NASH)
CPT/HCPCS: 36415; 80053; 76705; 83036; 85025; 85610

== ENCOUNTER 2022-09-04 03:27 | Outpatient (CLI) | payer MEDICARE, SELFPAY ==
[2022-09-04 07:17] LABS: Abs Immature Grans 0.03 10^3/uL (0.0-0.06); Absolute Basophil Count 0.04 10^3/uL (0.0-0.2); Absolute Lymphocyte Count 1.56 10^3/uL (1.2-3.4); Absolute Monocyte Count 0.64 10^3/uL (0.1-0.8); Absolute Neutrophil Count 4.85 10^3/uL (1.2-6.7); Basophils % 0.5; Eosinophils % 2.7; HCT 41.6 % (36.0-46.0); HGB 13.1 g/dL (11.2-15.7); Immature Grans % 0.4; Lymphocytes % 21.3; MCH 25.1 pg (27.0-33.0); MCHC 31.5 % (32.0-36.0); MCV 80 fL (80-95); MPV 9.9 fL (8.0-11.0); Monocytes % 8.7; Neutrophils % 66.4; Platelet Count 204 10^3/uL (130-400); RBC 5.21 10^6/uL (3.93-5.22); RDW 15.6 % (11.7-14.6); WBC 7.32 10^3/uL (4.4-10.8)
[2022-09-04 07:27] LABS: Prothrombin Time 10.5 sec (9.3-11.0)
[2022-09-04 08:06] LABS: ALT 112 U/L (14-59); AST 75 U/L (15-37); Albumin 3.8 g/dL (3.4-5.0); Alkaline Phosphatase 169 U/L (46-116); Anion Gap 8.2 mmol/L (3-11); BUN 23 mg/dL (7-18); Bilirubin, Total 0.4 mg/dL (0.2-1.0); CO2 25.8 mmol/L (21.0-32.0); CREATININE 0.9 mg/dL (0.55-1.02); Calcium 9.3 mg/dL (8.5-10.1); Chloride 103 mmol/L (98-107); Estimated GFR 67.08 (mL/min/1.73m2); Glucose 124 mg/dL (74-106); Potassium 4.1 mmol/L (3.5-5.1); Sodium 137 mmol/L (136-145); Total Protein 8.1 g/dL (6.4-8.2)
[2022-09-04 09:23] LABS: Hemoglobin A1C 6.5 % (<5.7)
== END 2022-09-04 03:28 | disposition home or self-care (01) ==
LOC: LBO 03:27
PROVIDERS: PCP Family Medicine; Visit Provider Physician Assistant Medical
DX: R73.03 Prediabetes (principal); K74.60 Unspecified cirrhosis of liver; K75.81 Nonalcoholic steatohepatitis (NASH)
CPT/HCPCS: 36415; 80053; 83036; 85025; 85610

== ENCOUNTER → 2022-09-26 09:11 | Outpatient (BNVA) | payer MEDICARE, SELFPAY | PROVIDERS: PCP Family Medicine; Referring Provider Family Medicine; Visit Provider Student in an Organized Health Care Education/Training Program | DX: G56.01 Carpal tunnel syndrome, right upper limb (principal) | CPT/HCPCS: 99213 ==

== ENCOUNTER → 2022-12-11 14:05 | Outpatient (BNVA) | payer MEDICARE, SELFPAY | PROVIDERS: PCP Family Medicine; Referring Provider Student in an Organized Health Care Education/Training Program; Visit Provider Nurse Practitioner Adult Health | DX: G56.01 Carpal tunnel syndrome, right upper limb (principal) | CPT/HCPCS: 99214 ==

== ENCOUNTER 2022-12-25 13:48 | Outpatient (REF) | payer MEDICARE, SELFPAY ==
[2022-12-25 11:56] LABS: COMMENT (LAB VIEW ONLY) 75.65 mg/dL; Microalb ug/mg Crea 10.2 ug/mg Cr
== END 2022-12-25 13:49 | disposition home or self-care (01) ==
LOC: LBN 13:48
PROVIDERS: PCP Family Medicine; Visit Provider Family Medicine
DX: E11.9 Type 2 diabetes mellitus without complications (principal)
CPT/HCPCS: 82043; 82570

== ENCOUNTER 2023-02-28 00:04 | Outpatient (CLI) | payer MEDICARE, SELFPAY ==
--- NOTE | 2023-02-28 | DI.US_ITS ---
Exam(s) US ABDOMEN LIMITED EXAM: US ABDOMEN LIMITED CLINICAL HISTORY: LIVER CIRRHOSIS SECONDARY TO BRIAN, K75.81, K74.60, SCREEN FOR HCC TECHNIQUE: Ultrasound abdomen performed using standard protocol. COMPARISON: CT CT ABDOMEN WO/W from 01/03/2022 US US ABDOMEN LIMITED from 09/04/2022 FINDINGS: There is no ascites evident. LIVER: Liver is again noted to be mildly echogenic and exhibiting somewhat coarse echotexture, probab ly an element of cirrhosis. However, there are no discrete focal hepatic lesions identified. No obv ious dilated intrahepatic ducts. GALLBLADDER/BILIARY: Gallbladder again noted be surgically absent. The common hepatic duct ismildly prominent, measuring 10-11mm at the level of morris hepatis. Probabl y related to combination of age and post cholecystectomy status. PANCREAS: There is no evidence of pancreatic mass nor dilatation of the pancreatic duct. RIGHT KIDNEY:No evidence of solid mass, calculus, nor hydronephrosis. No cortical cysts evident. IMPRESSION: 1. The gallbladder is again noted be surgically absent. Mild prominence of the CBD diameter again n oted which is probably related to post cholecystectomy status in this 72-year-old patient. 2. Liver is somewhat cirrhotic in appearance. No discrete focal hepatic masses. 3. There is no ascites. DATA REPOSITORY:
== END 2023-02-28 00:24 ==
LOC: DI 00:05
PROVIDERS: PCP Family Medicine; Visit Provider Physician Assistant Medical
DX: K75.81 Nonalcoholic steatohepatitis (NASH) (principal); K74.60 Unspecified cirrhosis of liver
CPT/HCPCS: 76705

== ENCOUNTER 2023-03-12 02:35 | Outpatient (CLI) | payer MEDICARE, SELFPAY ==
[2023-03-12 12:32] LABS: Abs Immature Grans 0.01 10^3/uL (0.0-0.06); Absolute Basophil Count 0.04 10^3/uL (0.0-0.2); Absolute Eosinophil Count 0.11 10^3/uL (0.0-0.7); Absolute Lymphocyte Count 1.26 10^3/uL (1.2-3.4); Absolute Monocyte Count 0.43 10^3/uL (0.1-0.8); Absolute Neutrophil Count 4.23 10^3/uL (1.2-6.7); Basophils % 0.7; Eosinophils % 1.8; HCT 40.5 % (36.0-46.0); HGB 12.1 g/dL (11.2-15.7); Immature Grans % 0.2; Lymphocytes % 20.7; MCH 23.5 pg (27.0-33.0); MCHC 29.9 % (32.0-36.0); MCV 79 fL (80-95); Monocytes % 7.1; Neutrophils % 69.5; Platelet Count 229 10^3/uL (130-400); RBC 5.14 10^6/uL (3.93-5.22); RDW 17.2 % (11.7-14.6); RDW-SD 49.5 fL; WBC 6.08 10^3/uL (4.4-10.8)
[2023-03-12 12:40] LABS: Prothrombin Time 10.1 sec (9.3-11.0)
[2023-03-12 13:05] LABS: ALT 113 U/L (14-59); AST 73 U/L (15-37); Albumin 3.7 g/dL (3.4-5.0); Alkaline Phosphatase 154 U/L (46-116); Anion Gap 8.6 mmol/L (3-11); BUN 19 mg/dL (7-18); Bilirubin, Total 0.5 mg/dL (0.2-1.0); CO2 27.4 mmol/L (21.0-32.0); CREATININE 0.9 mg/dL (0.55-1.02); Calcium 9.9 mg/dL (8.5-10.1); Chloride 107 mmol/L (98-107); Estimated GFR 67.08 (mL/min/1.73m2); Glucose 134 mg/dL (74-106); Potassium 4.1 mmol/L (3.5-5.1); Sodium 143 mmol/L (136-145); Total Protein 8.1 g/dL (6.4-8.2)
[2023-03-12 13:08] LABS: Hemoglobin A1C 6.8 % (<5.7)
== END 2023-03-12 02:36 | disposition home or self-care (01) ==
LOC: LOS 02:35
PROVIDERS: PCP Family Medicine; Visit Provider Family Medicine
DX: E11.9 Type 2 diabetes mellitus without complications (principal); K75.81 Nonalcoholic steatohepatitis (NASH); K74.60 Unspecified cirrhosis of liver
CPT/HCPCS: 36415; 80053; 82105; 83036; 85025; 85610

== ENCOUNTER 2023-09-08 03:08 | Outpatient (CLI) | payer MEDICARE, SELFPAY ==
[2023-09-08 09:07] LABS: Abs Immature Grans 0.03 10^3/uL (0.0-0.06); Absolute Basophil Count 0.04 10^3/uL (0.0-0.2); Absolute Eosinophil Count 0.08 10^3/uL (0.0-0.7); Absolute Lymphocyte Count 1.23 10^3/uL (1.2-3.4); Absolute Neutrophil Count 4.19 10^3/uL (1.2-6.7); Basophils % 0.7; Eosinophils % 1.3; HCT 36.2 % (36.0-46.0); HGB 10.7 g/dL (11.2-15.7); Immature Grans % 0.5; Lymphocytes % 20.6; MCH 22.2 pg (27.0-33.0); MCHC 29.6 % (32.0-36.0); MCV 75 fL (80-95); Monocytes % 6.7; Neutrophils % 70.2; Platelet Count 232 10^3/uL (130-400); RBC 4.82 10^6/uL (3.93-5.22); RDW 17.2 % (11.7-14.6); RDW-SD 45.8 fL; WBC 5.97 10^3/uL (4.4-10.8)
[2023-09-08 09:15] LABS: INR 1.1 (0.9-1.1); Prothrombin Time 11.3 sec (9.1-11.1)
[2023-09-08 09:27] LABS: Hemoglobin A1C 7.3 % (<5.7)
[2023-09-08 10:08] LABS: ALT 103 U/L (14-59); AST 93 U/L (15-37); Albumin 3.6 g/dL (3.4-5.0); Alkaline Phosphatase 172 U/L (46-116); Anion Gap 10.4 mmol/L (3-11); BUN 21 mg/dL (7-18); Bilirubin, Total 0.5 mg/dL (0.2-1.0); CO2 24.6 mmol/L (21.0-32.0); CREATININE 1.1 mg/dL (0.55-1.02); Calcium 9.9 mg/dL (8.5-10.1); Chloride 100 mmol/L (98-107); Glucose 206 mg/dL (74-106); Potassium 4.2 mmol/L (3.5-5.1); Sodium 135 mmol/L (136-145); TSH (W/Ref FT4) 3.28 uIU/mL (0.36-3.74)
[2023-09-08 17:39] LABS: Lab Add On Test DONE
[2023-09-08 18:09] LABS: Ferritin 23 ng/mL (8-252)
== END 2023-09-08 03:09 | disposition home or self-care (01) ==
PROVIDERS: PCP Family Medicine; Visit Provider Physician Assistant Medical
DX: E03.9 Hypothyroidism, unspecified (principal); R73.03 Prediabetes; K75.81 Nonalcoholic steatohepatitis (NASH); D50.9 Iron deficiency anemia, unspecified; K74.60 Unspecified cirrhosis of liver
CPT/HCPCS: 36415; 80053; 82728; 83036; 84443; 85025; 85610

== ENCOUNTER → 2023-09-12 00:05 | Outpatient (CLI) | payer MEDICARE, SELFPAY ==
--- NOTE | 2023-09-12 | DI.US_ITS ---
Exam(s) US ABDOMEN LIMITED EXAM: US ABDOMEN LIMITED CLINICAL HISTORY: LIVER CIRRHOSIS SECONDARY TO BRIAN,K75.81,K74.60,SCREEN FOR HCC TECHNIQUE: Ultrasound abdomen performed using standard protocol. COMPARISON: CT CT ABDOMEN WO/W from 01/03/2022 US US ABDOMEN LIMITED from 02/28/2023 FINDINGS: LIVER: Mildly enlarged. Mildly echogenic. Coarsened echotexture. No focal liver lesions are seen. GALLBLADDER: Status post cholecystectomy. BILIARY SYSTEM: No intrahepatic or extrahepatic biliary ductal dilation. Common bile duct 5 millimet ers KIDNEYS: Kidneys are symmetric in size. No evidence of renal calculi. No evidence of hydronephrosis. No renal mass or cyst identified. PANCREAS: Normal where visualized. SPLEEN: Not enlarged. ABDOMINAL AORTA AND IVC: Visualized portions normal caliber. ASCITES: None seen. IMPRESSION: No evidence of liver mass. DATA REPOSITORY:
== END ==
PROVIDERS: PCP Family Medicine; Visit Provider Physician Assistant Medical
DX: K75.81 Nonalcoholic steatohepatitis (NASH) (principal); K74.60 Unspecified cirrhosis of liver
CPT/HCPCS: 76705

== ENCOUNTER 2023-09-22 21:34 | Outpatient (REF) | payer MEDICARE, SELFPAY | END 2023-09-22 21:35 | disposition home or self-care (01) | LOC: LBN 21:34 | PROVIDERS: Visit Provider Nurse Practitioner Family | DX: R30.0 Dysuria (principal); N39.0 Urinary tract infection, site not specified | CPT/HCPCS: 87077; 87086; 87186 ==

== ENCOUNTER 2023-10-24 15:38 | Outpatient (REF) | payer MEDICARE, SELFPAY ==
[2023-10-24 13:38] LABS: Bilirubin Negative (Negative); Blood Trace-intact (Negative); Clarity Clear (Clear); Glucose Negative (Negative); Ketones Negative (Negative); Leukocyte Esterase Negative (Negative); Nitrite Negative (Negative); Urobilinogen 0.2 mg/dL (Up to 0.2); pH 5.5 (5-8)
[2023-10-24 14:05] LABS: Bacteria Rare HPF (Negative); C & S Indicated? C&S Done As Ordered; Casts Negative LPF (Negative); Crystals Negative HPF (Negative); Epithelial Cells Few HPF (Negative); Mucus Negative (Negative); RBC 0-2 HPF (0-2); WBC Negative HPF (0-5)
== END 2023-10-24 15:39 | disposition home or self-care (01) ==
LOC: LBN 15:38
PROVIDERS: PCP Physician Assistant; Visit Provider Physician Assistant
DX: N39.0 Urinary tract infection, site not specified (principal); B37.9 Candidiasis, unspecified
CPT/HCPCS: 81003; 81015; 87086; 87480; 87510; 87660

== ENCOUNTER 2024-02-11 05:10 | Outpatient (CLI) | payer MEDICARE, SELFPAY ==
[2024-02-11 12:43] LABS: INR 1.1 (0.9-1.1); Prothrombin Time 10.8 sec (9.1-11.1)
[2024-02-11 12:58] LABS: ALT 151 U/L (14-59); AST 122 U/L (15-37); Albumin 3.5 g/dL (3.4-5.0); Alkaline Phosphatase 240 U/L (46-116); Anion Gap 9.2 mmol/L (3-11); BUN 20 mg/dL (7-18); Bilirubin, Total 0.7 mg/dL (0.2-1.0); CO2 28.8 mmol/L (21.0-32.0); Calcium 10.2 mg/dL (8.5-10.1); Calculated LDL 107 mg/dL (<100); Chloride 98 mmol/L (98-107); Cholesterol 173 mg/dL (<200); Estimated GFR 58.75 (mL/min/1.73m2); Glucose 347 mg/dL (74-106); HDL Cholesterol 38 mg/dL (40-60); Potassium 4.4 mmol/L (3.5-5.1); Sodium 136 mmol/L (136-145); Total Protein 7.9 g/dL (6.4-8.2); Triglyceride 141 mg/dL (<150)
[2024-02-11 12:59] LABS: Hemoglobin A1C 11.5 % (<5.7)
[2024-02-11 21:40] LABS: AFP Tumor Marker 3.8 ng/mL (<8.1)
== END 2024-02-11 05:11 | disposition home or self-care (01) ==
LOC: LOS 05:10
PROVIDERS: PCP Family Medicine; Visit Provider Nurse Practitioner Adult Health
DX: E11.9 Type 2 diabetes mellitus without complications (principal); K74.60 Unspecified cirrhosis of liver
CPT/HCPCS: 36415; 80053; 80061; 82105; 83036; 85610

== ENCOUNTER 2024-02-17 10:26 | Outpatient (REF) | payer MEDICARE, SELFPAY ==
[2024-02-17 16:52] LABS: Microalb ug/mg Crea 12.4 ug/mg Cr
== END 2024-02-17 10:27 | disposition home or self-care (01) ==
LOC: LBN 10:26
PROVIDERS: PCP Family Medicine; Visit Provider Family Medicine
DX: E11.9 Type 2 diabetes mellitus without complications (principal)
CPT/HCPCS: 82043; 82570

== ENCOUNTER → 2024-03-17 03:51 | Outpatient (CLI) | payer MEDICARE, SELFPAY ==
--- NOTE | 2024-03-17 07:05 | DI.US_ITS ---
Exam(s) US ABDOMEN LIMITED EXAM: US ABDOMEN LIMITED CLINICAL HISTORY: K74.60 Hepatic cirrhosis,unspecified whether ascities present,screen forHCC TECHNIQUE: Ultrasound abdomen performed using standard protocol. COMPARISON: CT CT ABDOMEN WO/W from 01/03/2022 US US ABDOMEN LIMITED from 09/12/2023 FINDINGS: LIVER: coarse echotexture with nodular surface. Enlarged at 18.6 cm in length. No focal liver lesi ons are seen. GALLBLADDER: Status post cholecystectomy. BILIARY SYSTEM: Stable mild extrahepatic biliary dilatation. KIDNEYS: Kidneys are symmetric in size. No evidence of renal calculi. No evidence of hydronephrosis. No renal mass or cyst identified. PANCREAS: Normal where visualized. SPLEEN: Not enlarged. ABDOMINAL AORTA AND IVC: Visualized portions normal caliber. ASCITES: None seen. IMPRESSION: Stable appearance of cirrhotic liver. No mass identified. DATA REPOSITORY:
== END ==
PROVIDERS: PCP Family Medicine; Visit Provider Nurse Practitioner Adult Health
DX: K74.60 Unspecified cirrhosis of liver (principal)
CPT/HCPCS: 76705

== ENCOUNTER 2024-06-28 04:03 | Outpatient (CLI) | payer MEDICARE, SELFPAY ==
[2024-06-28 12:30] LABS: HCT 45.5 % (36.0-46.0); HGB 15.1 g/dL (11.2-15.7); MCHC 33.2 % (32.0-36.0); MCV 91 fL (80-95); MPV 11.6 fL (8.0-11.0); Platelet Count 195 10^3/uL (130-400); RBC 5.03 10^6/uL (3.93-5.22); RDW 13.9 % (11.7-14.6); RDW-SD 45.9 fL; WBC 7.69 10^3/uL (4.4-10.8)
[2024-06-28 12:45] LABS: Hemoglobin A1C 5.7 % (<5.7)
[2024-06-28 12:49] LABS: ALT 129 U/L (14-59); AST 84 U/L (15-37); Albumin 3.9 g/dL (3.4-5.0); Alkaline Phosphatase 194 U/L (46-116); Anion Gap 9.2 mmol/L (3-11); BUN 23 mg/dL (7-18); Bilirubin, Total 0.64 mg/dL (0.2-1.0); CO2 26.8 mmol/L (21.0-32.0); Calcium 10.4 mg/dL (8.5-10.1); Chloride 101 mmol/L (98-107); Estimated GFR 58.39 (mL/min/1.73m2); Glucose 113 mg/dL (74-106); Potassium 4.5 mmol/L (3.5-5.1); Sodium 137 mmol/L (136-145); Total Protein 7.9 g/dL (6.4-8.2)
== END 2024-06-28 04:04 | disposition home or self-care (01) ==
LOC: LOS 04:03
PROVIDERS: PCP Family Medicine; Visit Provider Family Medicine
DX: E11.9 Type 2 diabetes mellitus without complications (principal); E11.65 Type 2 diabetes mellitus with hyperglycemia; Z79.4 Long term (current) use of insulin; D50.9 Iron deficiency anemia, unspecified
CPT/HCPCS: 36415; 80053; 85027; 83036

== ENCOUNTER 2024-09-06 01:23 | Outpatient (CLI) | payer MEDICARE, SELFPAY ==
--- NOTE | 2024-09-06 | DI.US_ITS ---
Exam(s) US ABDOMEN LIMITED EXAM: US ABDOMEN LIMITED CLINICAL HISTORY: HEPATIC CIRRHOSIS K74.60 SCREEN FOR HCC TECHNIQUE: Ultrasound abdomen performed using standard protocol. COMPARISON: US US ABDOMEN LIMITED from 03/17/2024 FINDINGS: LIVER: Heterogeneous echotexture. Nodular contour. Enlargement of left lobe. Overall normal liver size, 15.4 cm in length.. No focal liver lesions are seen. GALLBLADDER: Status post cholecystectomy. BILIARY SYSTEM: No intrahepatic or extrahepatic biliary ductal dilation. Right KIDNEYS: No evidence of renal calculi. No evidence of hydronephrosis. No renal mass or cyst elif ntified. PANCREAS: Normal where visualized. ABDOMINAL AORTA AND IVC: Visualized portions normal caliber. ASCITES: None seen. IMPRESSION: Cirrhotic appearing liver. No focal liver lesions are identified. DATA REPOSITORY:
== END 2024-09-06 01:43 ==
LOC: DI 01:23
PROVIDERS: PCP Family Medicine; Visit Provider Nurse Practitioner Adult Health
DX: K74.60 Unspecified cirrhosis of liver (principal)
CPT/HCPCS: 76705

== ENCOUNTER 2024-09-06 02:05 | Outpatient (CLI) | payer MEDICARE, SELFPAY ==
[2024-09-06 07:32] LABS: Abs Immature Grans 0.05 10^3/uL (0.0-0.06); Absolute Basophil Count 0.03 10^3/uL (0.0-0.2); Absolute Eosinophil Count 0.19 10^3/uL (0.0-0.7); Absolute Lymphocyte Count 1.61 10^3/uL (1.2-3.4); Absolute Monocyte Count 0.53 10^3/uL (0.1-0.8); Absolute Neutrophil Count 4.76 10^3/uL (1.2-6.7); Basophils % 0.4 %; Eosinophils % 2.6 %; HCT 43.5 % (36.0-46.0); HGB 14.4 g/dL (11.2-15.7); Immature Grans % 0.7 %; Lymphocytes % 22.5 %; MCH 29.6 pg (27.0-33.0); MCHC 33.1 % (32.0-36.0); MCV 90 fL (80-95); MPV 10.6 fL (8.0-11.0); Monocytes % 7.4 %; Neutrophils % 66.4 %; Platelet Count 196 10^3/uL (130-400); RBC 4.86 10^6/uL (3.93-5.22); RDW 14.3 % (11.7-14.6); RDW-SD 46.5 fL; WBC 7.17 10^3/uL (4.4-10.8)
[2024-09-06 07:43] LABS: INR 1.1 (0.9-1.1); Prothrombin Time 10.8 sec (9.1-11.1)
[2024-09-06 07:51] LABS: ALT 88 U/L (14-59); AST 64 U/L (15-37); Albumin 3.5 g/dL (3.4-5.0); Alkaline Phosphatase 155 U/L (46-116); Anion Gap 11.1 mmol/L (3-11); BUN 32 mg/dL (7-18); Bilirubin, Total 0.51 mg/dL (0.2-1.0); CO2 25.9 mmol/L (21.0-32.0); Chloride 104 mmol/L (98-107); Estimated GFR 58.39 (mL/min/1.73m2); Glucose 117 mg/dL (74-106); Potassium 4.4 mmol/L (3.5-5.1); Sodium 141 mmol/L (136-145); Total Protein 7.7 g/dL (6.4-8.2)
[2024-09-06 18:15] LABS: AFP Tumor Marker <2.5 ng/mL (<8.1)
== END 2024-09-06 02:06 | disposition home or self-care (01) ==
LOC: LBO 02:06
PROVIDERS: PCP Family Medicine; Visit Provider Nurse Practitioner Adult Health
DX: K74.60 Unspecified cirrhosis of liver (principal)
CPT/HCPCS: 36415; 80053; 82105; 85025; 85610

== ENCOUNTER 2024-11-25 00:20 | Outpatient (CLI) | payer MEDICARE, SELFPAY ==
--- NOTE | 2024-11-25 08:15 | DI.RAD_ITS ---
Exam(s) XR FOOT RT COMPLETE EXAM: XR FOOT RT COMPLETE CLINICAL HISTORY: Right foot pain,m79.671. TECHNIQUE: 2D digital imaging was performed. Three views. COMPARISON: No exams were available for comparison FINDINGS: BONES: No acute fracture is present. No bony destructive lesion is seen. Heel spurs. JOINTS: No dislocation present. Mild narrowing of 1st MTP joint and periarticular spurring. No yang ux valgus. SOFT TISSUE: Normal. IMPRESSION: Mild degenerative changes 1st MTP joint. Heel spurs. DATA REPOSITORY: RADIATION DOSE DELIVERED:
== END 2024-11-25 00:40 ==
PROVIDERS: PCP Family Medicine; Visit Provider Podiatrist
DX: M79.671 Pain in right foot (principal)
CPT/HCPCS: 17110; 73630

== ENCOUNTER → 2024-12-30 14:18 | Outpatient (BNVA) | payer MEDICARE, SELFPAY | PROVIDERS: PCP Family Medicine; Referring Provider Family Medicine; Visit Provider Podiatrist | DX: B07.0 Plantar wart (principal); E11.65 Type 2 diabetes mellitus with hyperglycemia; Z79.4 Long term (current) use of insulin; M79.671 Pain in right foot; B35.1 Tinea unguium; L60.3 Nail dystrophy | CPT/HCPCS: 17110 ==

== ENCOUNTER → 2025-01-27 11:05 | Outpatient (BNVA) | payer MEDICARE, SELFPAY | PROVIDERS: PCP Family Medicine; Referring Provider Family Medicine; Visit Provider Podiatrist | DX: B07.0 Plantar wart (principal); M79.671 Pain in right foot; B35.1 Tinea unguium; L60.3 Nail dystrophy; E11.65 Type 2 diabetes mellitus with hyperglycemia; Z79.4 Long term (current) use of insulin; M20.5X1 Other deformities of toe(s) (acquired), right foot | CPT/HCPCS: 17110 ==

== ENCOUNTER 2025-02-17 02:29 | Outpatient (CLI) | payer MEDICARE, SELFPAY ==
[2025-02-17 12:41] LABS: Iron 57 ug/dL (50-170); Total Iron Binding Capacity 399 ug/dL (250-450)
[2025-02-17 12:45] LABS: Hemoglobin A1C 5.8 % (<5.7)
[2025-02-17 13:08] LABS: ALT 80 U/L (14-59); AST 53 U/L (15-37); Albumin 3.7 g/dL (3.4-5.0); Alkaline Phosphatase 151 U/L (46-116); Anion Gap 8.4 mmol/L (3-11); BUN 26 mg/dL (7-18); Bilirubin, Total 0.5 mg/dL (0.2-1.0); CO2 27.6 mmol/L (21.0-32.0); CREATININE 1.1 mg/dL (0.55-1.02); Calcium 10.2 mg/dL (8.5-10.1); Calculated LDL 79 mg/dL (<100); Chloride 102 mmol/L (98-107); Cholesterol 147 mg/dL (<200); Estimated GFR 52.08 (mL/min/1.73m2); Ferritin 143 ng/mL (8-252); Glucose 106 mg/dL (74-106); HDL Cholesterol 44 mg/dL (>or=50); Potassium 4.2 mmol/L (3.5-5.1); Sodium 138 mmol/L (136-145); Total Protein 7.8 g/dL (6.4-8.2); Triglyceride 124 mg/dL (<150)
[2025-02-17 13:15] LABS: COMMENT (LAB VIEW ONLY) 92.43 mg/dL
[2025-02-17 13:45] LABS: Microalb ug/mg Crea 9.5 ug/mg Cr
[2025-02-18 08:55] LABS: Insulin 35.1 uIU/mL (<29.0)
== END 2025-02-17 02:30 | disposition home or self-care (01) ==
LOC: LOS 02:29
PROVIDERS: PCP Family Medicine; Visit Provider Family Medicine
DX: E11.65 Type 2 diabetes mellitus with hyperglycemia; Z79.4 Long term (current) use of insulin; E61.1 Iron deficiency
CPT/HCPCS: 36415; 80053; 80061; 82043; 82570; 82728; 83036; 83525; 83540; 83550

== ENCOUNTER 2025-03-16 00:48 | Outpatient (CLI) | payer MEDICARE, SELFPAY ==
--- NOTE | 2025-03-16 | DI.US_ITS ---
Exam(s) US ABDOMEN LIMITED EXAM: US ABDOMEN LIMITED CLINICAL HISTORY: HEPATIC CIRRHOSIS,K74.60,SCREENING FOR HCC TECHNIQUE: Ultrasound abdomen performed using standard protocol. COMPARISON: US US ABDOMEN LIMITED from 09/06/2024 FINDINGS: LIVER: Mildly enlarged at 17 cm.. Increased echogenicity. Normal heterogeneous echotexture. Micro lobulations at the surface.. No focal liver lesions are seen.. GALLBLADDER: Cholecystectomy. BILIARY SYSTEM: Stable dilatation of the common bile duct to 15 millimeters. RIGHT KIDNEY: Normal size. No evidence of renal calculi. No evidence of hydronephrosis. No suspicious renal mass. No cyst identified. PANCREAS: Normal where visualized. ABDOMINAL AORTA AND IVC: Visualized portions normal caliber. ASCITES: None seen. IMPRESSION: No evidence of liver mass. Stable biliary dilatation. DATA REPOSITORY:
== END 2025-03-16 01:08 ==
LOC: DI 00:48
PROVIDERS: PCP Family Medicine; Visit Provider Nurse Practitioner Adult Health
DX: K74.60 Unspecified cirrhosis of liver (principal)
CPT/HCPCS: 76705

== ENCOUNTER 2025-03-16 01:48 | Outpatient (CLI) | payer MEDICARE, SELFPAY ==
[2025-03-16 08:13] LABS: TSH (W/Ref FT4) 5.52 uIU/mL (0.36-3.74)
[2025-03-16 08:39] LABS: FREE T4 0.83 ng/dL (0.76-1.46)
== END 2025-03-16 01:49 | disposition home or self-care (01) ==
PROVIDERS: PCP Family Medicine; Visit Provider Family Medicine
DX: E03.9 Hypothyroidism, unspecified (principal)
CPT/HCPCS: 36415; 84439; 84443

== ENCOUNTER 2025-05-30 02:07 | Outpatient (CLI) | payer MEDICARE, SELFPAY ==
[2025-05-30 11:12] LABS: TSH (W/Ref FT4) 0.63 uIU/mL (0.36-3.74)
== END 2025-05-30 02:08 | disposition home or self-care (01) ==
PROVIDERS: PCP Family Medicine; Visit Provider Family Medicine
DX: E03.9 Hypothyroidism, unspecified (principal)
CPT/HCPCS: 36415; 84443

== ENCOUNTER 2025-09-07 01:21 | Outpatient (CLI) | payer MEDICARE, SELFPAY ==
--- NOTE | 2025-09-07 07:40 | DI.US_ITS ---
Exam(s) US ABDOMEN LIMITED EXAM: US ABDOMEN LIMITED CLINICAL HISTORY: HEPATIC CIRRHOSIS,k74.60,SCREEN FOR HCC TECHNIQUE: Ultrasound abdomen performed using standard protocol. COMPARISON: CT CT ABDOMEN WO/W from 01/03/2022 US US ABDOMEN LIMITED from 03/16/2025 FINDINGS: There is no ascites evident. LIVER: Liver size is upper normal. Liver appears somewhat nodular and mildly echogenic. Probably element of cirrhosis. GALLBLADDER/BILIARY: Gallbladder is again noted to be surgically absent. The common hepatic duct issignificantly dilated, measuring 17mm at the level of morris hepatis. This is similar to the prior CT scan 2021. PANCREAS: There is no evidence of pancreatic mass nor dilatation of the pancreatic duct. RIGHT KIDNEY:No evidence of solid mass, calculus, nor hydronephrosis. No cortical cysts evident. IMPRESSION: 1. Gallbladder is again noted be surgically absent. CBD is dilated to 17 mm which was also previously present on CT scan of 2021. No obvious calculus nor mass in the visualized CBD. There is also no obvious pancreatic head mass. 2. Somewhat cirrhotic appearing liver. No focal hepatic lesions. 3. There is no ascites. DATA REPOSITORY:
== END 2025-09-07 01:41 ==
LOC: DI 01:22
PROVIDERS: PCP Family Medicine; Visit Provider Nurse Practitioner Adult Health
DX: K74.60 Unspecified cirrhosis of liver (principal)
CPT/HCPCS: 76705

== ENCOUNTER 2025-09-07 01:59 | Outpatient (CLI) | payer MEDICARE, SELFPAY ==
[2025-09-07 08:16] LABS: Abs Immature Grans 0.07 10^3/uL (0.0-0.06); HCT 45.0 % (36.0-46.0); HGB 14.6 g/dL (11.2-15.7); Immature Grans % 1.0 %; MCH 28.4 pg (27.0-33.0); MCHC 32.4 % (32.0-36.0); MCV 88 fL (80-95); MPV 10.1 fL (8.0-11.0); Platelet Count 197 10^3/uL (130-400); RBC 5.14 10^6/uL (3.93-5.22); RDW 13.7 % (11.7-14.6); RDW-SD 44.3 fL; WBC 7.32 10^3/uL (4.4-10.8)
[2025-09-07 08:28] LABS: INR 1.1 (0.9-1.1); Prothrombin Time 10.9 sec (9.1-11.1)
[2025-09-07 08:58] LABS: ALT 99 U/L (14-59); AST 60 U/L (15-37); Albumin 3.7 g/dL (3.4-5.0); Alkaline Phosphatase 175 U/L (46-116); Anion Gap 8.8 mmol/L (3-11); BUN 23 mg/dL (7-18); Bilirubin, Total 0.6 mg/dL (0.2-1.0); CO2 28.2 mmol/L (21.0-32.0); Calcium 10.0 mg/dL (8.5-10.1); Chloride 101 mmol/L (98-107); Estimated GFR 75.84 (mL/min/1.73m2); Glucose 115 mg/dL (74-106); Potassium 4.6 mmol/L (3.5-5.1); Sodium 138 mmol/L (136-145); Total Protein 7.5 g/dL (6.4-8.2)
== END 2025-09-07 02:00 | disposition home or self-care (01) ==
LOC: LBO 01:59
PROVIDERS: PCP Family Medicine; Visit Provider Nurse Practitioner Adult Health
DX: E27.8 Other specified disorders of adrenal gland (principal); K74.60 Unspecified cirrhosis of liver
CPT/HCPCS: 36415; 80053; 82533; 82105; 85025; 85610

== ENCOUNTER → 2025-10-17 00:48 | Outpatient (CLI) | payer MEDICARE, SELFPAY ==
--- NOTE | 2025-10-17 06:15 | DI.MRI_ITS ---
Exam(s) MR ABDOMEN WO/W EXAM: MR ABDOMEN WO/W CLINICAL HISTORY: f/u adrenal mass,adrenal abnormality,e27.9,e27.8 TECHNIQUE: Multiplanar multisequence MRI of the Abdomen was performed. CONTRAST MATERIAL: IV Contrast: 17 mL of Dotarem contrast administered. COMPARISON: MR MR ABDOMEN WO/W from 11/21/[address] ABDOMEN WO/W from 01/03/[address] CHEST WO from 01/03/2022 FINDINGS: Lung bases: Unremarkable. Liver: Mild fatty infiltration. Contour suggestive of cirrhosis. No suspicious focal lesions. Pancreas: Unremarkable. Gallbladder: Cholecystectomy. Bile ducts: Stable mild dilatation of the common bile duct. Adrenals: Stable circumscribed left adrenal nodule measuring 1.7 cm, again consistent with an adenoma. No follow-up recommended. Kidneys: Multiple simple cysts. No follow-up is recommended. Spleen: mildly enlarged at 13.6 cm in length. Aorta: Unremarkable. Soft Tissues: Unremarkable. Bone: Unremarkable. Lymph Nodes: Unremarkable. Stomach and bowel: Unremarkable. Peritoneal cavity: Unremarkable. No evidence of ascites. IMPRESSION: Stable 17 millimeter left adrenal adenoma. Cirrhotic appearing liver. Mild splenomegaly. DATA REPOSITORY:
[2025-10-17] MEDS: Gadoterate meglumine 20 ML VIAL IJ (07:57)
[2025-10-17] MEDS: Normal Saline - Diluent 50 ML VIAL IJ (07:57)
== END ==
LOC: DI 00:48
PROVIDERS: PCP Family Medicine; Visit Provider Family Medicine
DX: E27.8 Other specified disorders of adrenal gland (principal); K76.0 Fatty (change of) liver, not elsewhere classified; R16.1 Splenomegaly, not elsewhere classified
CPT/HCPCS: 74183